=== PATIENT | female | born 1945 | race Caucasian/White ===

== ENCOUNTER 2017-11-29 07:00 | Day surgery (SDC) | payer MEDICARE ==
[~2017-11-29] VITALS: Ht 162.6 cm; Wt 115.2 kg
[~2017-11-29 07:00] MED LIST: ACTEMRA400 MG/20 IV; ASPIR-LOW81 MG PO; BENICAR40 MG PO; CLONIDINE HCL0.1 MG PO; HUMULIN R500 UNIT/2 SUB-Q; LANTUS100 UNITS/ SUB-Q; LEVOTHYROXINE175 MCG PO; LIPITOR20 MG PO; METFORMIN HCL500 MG PO; METOPROLOL SUCC50 MG PO; NASONEX17 GM NAS; OMEPRAZOLE20 MG PO; PRAMIPEXOLE DI1.5 MG PO; SULFASALAZINE500 MG PO; XANAX0.25 MG PO
--- NOTE | 2017-11-29 11:21 | NUR ---
11/29/17 1121 Genet Cohen 1111 PATIENT ARRIVES TO PACU UNRESPONSIVE TO PAIN OR VERBAL STIMULI. RESP EVEN AND UNLABORED, ORAL AIRWAY IN PLACE. MASK AT 6 LITERS. 1115 PATIENT OPENS EYES TO VERBAL STIMULI, OPENS MOUTH ON COMMAND, ORAL AIRWAY REMOVED. PATIENT OWN NASAL CPAP ON WITH OXYGEN AT 6 LITERS.
[2017-11-29] MEDS ORDERED: OXYCODON-ACETA1 EAC2 PO (11:34)
[2017-11-29] MEDS ORDERED: MAPAP325 MG PO (11:34)
--- NOTE | 2017-11-29 13:55 | NUR ---
LE 1150 PT RETURNED FROM PACU, PT DROWSY BUT RESPONDS TO VOICE. VITALS STABLE. PT CURRENTLY RESTING ON CPAP. WATER AT BEDSIDE. FAMILY AT BEDSIDE. NO FURTHER NEEDS AT THIS TIME.
--- NOTE | 2017-11-29 13:57 | NUR ---
LE 1200 PT CALLED STATING SHE IS HAVING INCREASED PAIN. PT RATES PAIN A 5/10. MORPHINE GIVEN FOR PAIN. PT ADVISED TO ADVISE RN IF PAIN DOES NOT IMPROVE. 1220 PT CALLED, IN TO SEE PT. PT STATES PAIN HAS NOT IMPROVED. MORPHINE 2 MG REPEATED. PT ASSISTED UP TO BSC WITH ASSIST OF 2 RN'S. PT TOLERATED WELL. DISCUSSED EATING SOME FOOD TO ADMINISTER ORAL PAIN MEDICATIONS FOR BETTER CONTROL. PT ASSISTED BACK TO BED, TOLERATED WELL. PRUDENCE GIRON WILL CONTINUE TO MONITOR PT, CPAP IN PLACE.
--- NOTE | 2017-11-29 14:09 | OR ---
[facility] [address] [place], [place] [address] Signed DATE OF OPERATION: 11/29/2017 SURGEON: Landon Dc MD PREOPERATIVE DIAGNOSES: 1. Left lateral periareolar dilated ductal system with small intraductal mass of uncertain behavior. 2. Hypertension (recently under control). POSTOPERATIVE DIAGNOSES: 1. Left lateral periareolar dilated ductal system with small intraductal mass of uncertain behavior. 2. Hypertension (recently under control). PROCEDURE: Left subareolar partial mastectomy. ANESTHESIA: General endotracheal; Camilla Hardy CRNA. INDICATION: This 72-year-old white woman is a patient of Dr. Carr and underwent a routine mammogram where she was noted to have some longstanding seepage from the left nipple. Clear fluid has been noted. This has been going on at least 3 years. She has never had bloody discharge. A mammogram and subsequent ultrasound of the breast was undertaken. 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 She has no family history of breast cancer that she is aware of. She does have significant rheumatoid disease, for which she has seen Dr. Cleary and more recently Dr. Hightower. She has rather extensive family history of systemic lupus, rheumatoid arthritis, Sjogren syndrome, and other issues. She was recently imaged for excision of the lesion with ultrasound guidance anticipating wide excision of the area in the subareolar area of the left breast, having had the area in question marked out by the radiologist with ultrasound, but upon presentation to the operating room had unacceptably high hypertension. At that time, her blood pressure was about 206/103 to 186/94. Additionally, she had premature ventricular beats, which were excessive, although they were unifocal. Rather than proceed with excision as planned, the operation was scheduled and an OpSite applied over that imaging site and she was seen once again promptly by Dr. Carr, who outlined an additional antihypertensive Electronically Signed By: LANDON DC MD 11/29/17 1409 PATIENT NAME: GAETANO SILVA OPERATIVE REPORT DATE OF : 49 REPORT #: [id number] PHYSICIAN: LANDON DC MD PCP: DE CARR DO REPORT IS CONFIDENTIAL AND NOT TO BE RELEASED WITHOUT AUTHORIZATION [facility] [address] [place], [place] [address] Signed regimen, which she has followed. She now has good hypertension control and no ectopy is noted. She is admitted now to undergo excision as planned of the area outlined in the left lateral aspect of the subareolar area. She understands as does her the risks of bleeding, infection, need for additional treatment, should malignancy be found, and other unforeseen complications. FINDINGS: The breast tissue excised was beneath the areola extending to the nipple itself and laterally beyond the margin of the areolar border. It was in concert with the previously marked area on the skin by the radiologist a few days ago. A ductal system with cystic fluid, which was mostly thick was noted. Deep excision was undertaken to approximately 4 cm and wide excision approximately 3 cm. Given the redundancy of her breast tissue, closure was undertaken in the oncoplastic way that showed no real defect at conclusion. DESCRIPTION OF PROCEDURE: The patient was brought to the operating room, given a general endotracheal anesthetic. Preoperative antibiotics were administered. The small OpSite that had covered the marking from a few days ago, was removed in the area re-additionally marked. The breast was prepared with a chlorhexidine solution and draped sterilely. A curvilinear incision was made along the areolar margin after marking it and after areolar stimulation. This was on the lateral aspect of the left areola obviously. Dissection was carried through the dermis with electrocautery. The flap was elevated with the nipple-areolar complex and just beneath the dermis was noted ectatic dilated ductal passages. An incision was taken to the midline beneath the areola itself and then excised laterally in concert with the previously marked area. Dissection was taken quite deep considering the numerous ductules with thickened fluid and so forth. Wide excision laterally was undertaken as well. This represented a rather sizable subareolar excision. The specimen was oriented. Photographs were taken throughout the procedure. Irrigation was undertaken and hemostasis assured with electrocautery. The breast parenchyma was reapproximated with interrupted 2-0 Vicryl. The deep dermal reapproximation was undertaken similarly and skin was closed with a running subcuticular 3-0 Vicryl. Steri-Strips were applied as was a Mepilex silver sponge dressing and an OpSite. Cosmesis was quite good. Blood loss was minimal. MD ZOIE Montalvo/KALENL Electronically Signed By: LANDON DC MD 11/29/17 1409 PATIENT NAME: GAETANO SILVA OPERATIVE REPORT DATE OF : 49 REPORT #: [id number] PHYSICIAN: LANDON DC MD PCP: ED CARR DO REPORT IS CONFIDENTIAL AND NOT TO BE RELEASED WITHOUT AUTHORIZATION [facility] [address] [place] [address] Signed /[id number] cc: MD De Gruber DO Copies: LIZA FIGUEROA MD, FRANK E DO ~ Electronically Signed By: LANDON DC MD 11/29/17 1409 PATIENT NAME: GAETANO SILVA OPERATIVE REPORT DATE OF : 49 REPORT #: [id number] PHYSICIAN: LANDON DC MD PCP: DE CARR DO REPORT IS CONFIDENTIAL AND NOT TO BE RELEASED WITHOUT AUTHORIZATION
--- NOTE | 2017-11-29 15:44 | NUR ---
LE 1315 IN TO CHECK ON PT, SHE STATES SHE IS DOING OKAY. PT IS STILL DROWSY. PAIN IS IMPROVING. PT ADVISED TO CONTINUE TO REST. NO FURTHER NEEDS AT THIS TIME. CALL LIGHT IN REACH, AT BEDSIDE. 1350 IN TO CHECK ON PT, PT SLEEPING. AWAKENS TO VOICE. BLANKET REQUESTED, GIVEN. NO FURTHER NEEDS AT THIS TIME. CALL LIGHT IN REACH, AT BEDSIDE. 1420 OUT TO RN STATION, STATES PT IS WAKING UP. IN TO SEE PT. PT STATES SHE IS READY TO GO HOME. ASSISTED UP TO BATHROOM, TOLERATED WELL. IV DC'D. PT DRESSING WITH HELP OF . 1450 DISCHARGE INSTRUCTIONS GIVEN TO . PT DRESSED AND SITTING IN CHAIR. ALL QUESTIONS ANSWERED. PT AMBULATED TO WHEELCHAIR, OUT OF UNIT. WAITING WITH CAR.
--- NOTE | 2017-11-30 05:41 | EKG ---
[facility] [address] [facility] [place], [place] [address] Signed Sinus bradycardia Otherwise normal ECG When compared with ECG of 26-NOV-2017 09:19, premature ventricular complexes are no longer present QT has shortened Confirmed by LIZA GUZMAN MD ([id number]) on 11/30/2017 5:41:47 AM Electronically Signed By: LIZA GUZMAN MD 11/30/17 0541 PATIENT NAME: GAETANO SILVA Electrocardiogram DATE OF : 49 PHYSICIAN: LIZA GUZMAN MD REPORT #: [id number] REPORT IS CONFIDENTIAL AND NOT TO BE RELEASED WITHOUT AUTHORIZATION
== END 2017-11-29 15:05 ==
LOC: DS 07:00
PROVIDERS: Surgery
PROC: 0HBU0ZZ Excision of Left Breast, Open Approach (ICD-10-PCS; principal; 2017-11-29 08:30)
DX: D24.2 Benign neoplasm of left breast (principal); N60.02 Solitary cyst of left breast; N60.32 Fibrosclerosis of left breast; I10 Essential (primary) hypertension; E03.9 Hypothyroidism, unspecified; G47.30 Sleep apnea, unspecified; E66.01 Morbid (severe) obesity due to excess calories; E11.9 Type 2 diabetes mellitus without complications; M06.9 Rheumatoid arthritis, unspecified; Z88.8 Allergy status to other drugs, medicaments and biological substances; Z90.710 Acquired absence of both cervix and uterus; Z90.89 Acquired absence of other organs; Z98.890 Other specified postprocedural states; Z98.51 Tubal ligation status; Z99.89 Dependence on other enabling machines and devices; Z68.41 Body mass index [BMI] 40.0-44.9, adult; Z79.4 Long term (current) use of insulin; Z79.82 Long term (current) use of aspirin; Z79.899 Other long term (current) drug therapy
CPT/HCPCS: 00404; 88305; 93005; 93010; J0690; J1644; J1885; J2270; J2405; J2704; J3010; J7120

== ENCOUNTER 2022-06-07 17:48 | Emergency (ER) | payer MEDICARE ==
[~2022-06-07] VITALS: Ht 162.6 cm; Wt 105.2 kg
[~2022-06-07 17:48] MED LIST changes: +MAPAP325 MG PO; +OXYCODON-ACETA1 EAC2 PO
--- OUTSIDE RECORDS SUMMARY | 2022-06-07 17:56 | XMS ---
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 Dot has no Care Guidelines for this patient. Connie VISIT COUNT (12 MO.) 1 [facility] T[facility] 2 NOTE: Visits indicate total known visits. ED/C VISIT TRACKING (12 MO.) 06/07/2022 17:49 [facility] [place] [facility] Emergency COMPLAINT: - MEDICATION REACTION [facility]16[facility]2022 09[facility] DIAGNOSES: - Shortness of breath - Atherosclerotic heart disease of [place] coronary artery without angina pectoris - SOB, irregular heart beat - Other chest pain - Shortness of Breath INPATIENT VISIT TRACKING (12 MO.) [facility] DIAGNOSES: - Other exterminator helper (current) drug therapy - Paroxysmal atrial fibrillation [email or web address]
[2022-06-07] MEDS ORDERED: SOTALOL80 MG PO (18:18)
[2022-06-07] MEDS ORDERED: CEPHALEXIN500 M1 PO (20:45)
--- NOTE | 2022-06-08 00:01 | EKG ---
[facility] [address] [place] [address] Signed Sinus bradycardia Otherwise normal ECG When compared with ECG of 10-NOV-2021 13:32, Sinus rhythm has replaced Atrial fibrillation Vent. rate has decreased BY 62 BPM Borderline criteria for Inferior infarct are no longer present Nonspecific T wave abnormality no longer evident in Lateral leads Confirmed by LIZA GUZMAN MD ([id number]) on 06/08/2022 12:01:07 AM Electronically Signed By: LIZA GUZMAN MD 06/08/22 0001 PATIENT NAME: GAETANO SILVA FEBRUARY Electrocardiogram DATE OF : 49 PHYSICIAN: LIZA GUZMAN MD REPORT #: [id number] REPORT IS CONFIDENTIAL AND NOT TO BE RELEASED WITHOUT AUTHORIZATION
== END 2022-06-07 21:13 | disposition home or self-care (01) ==
LOC: ED 17:48
DX: N39.0 Urinary tract infection, site not specified (principal); M06.9 Rheumatoid arthritis, unspecified; M19.90 Unspecified osteoarthritis, unspecified site; I10 Essential (primary) hypertension; E11.319 Type 2 diabetes mellitus with unspecified diabetic retinopathy without macular edema; Z88.8 Allergy status to other drugs, medicaments and biological substances; Z79.899 Other long term (current) drug therapy; Z79.4 Long term (current) use of insulin; Z79.84 Long term (current) use of oral hypoglycemic drugs
CPT/HCPCS: 36415; 70450; 71046; 80053; 81001; 83735; 83880; 85025; 87077; 87088; 87186; 93005; 93010; 99284-25; A9270

== ENCOUNTER 2024-06-17 05:00 | Emergency (ER) | payer MEDICARE ==
[~2024-06-17] VITALS: Ht 162.6 cm; Wt 80.0 kg
[~2024-06-17 05:00] MED LIST changes: +AMIODARONE HCL200 MG PO; +CEFPODOXIME PR100 MG PO; +CEPHALEXIN500 M1 PO; +DILTIAZEM ER180 MG PO; +ELIQUIS5 MG PO; +HYDROCHLOROTHIA25 MG PO; +HYDROXYCHLOROQ200 MG PO; +ISOSORBIDE MONO30 MG PO; +OZEMPIC1 MG/0.71 SQ; +SOTALOL80 MG PO; +VITAMIN D325 MCG PO
[2024-06-17] MEDS ORDERED: MORPHINE SULFATE 4 MG/ML VIAL IV ONE (05:30)
[2024-06-17] MEDS ORDERED: ASPIRIN 81 MG CHEW PO ONE (05:30)
[2024-06-17] MEDS ORDERED: hydrALAZINE HCL 20 MG/ML VIAL IV ONE (05:30)
[2024-06-17 05:32] LABS: BASOPHILS 0.9 % (0-2); EOSINOPHILS 0.5 % (0-6); HEMATOCRIT 32.7 % (35.0-50.0); LYMPHOCYTES 30.9 % (24-44); MCH 29.1 (27-36); MCHC 33.8 g/dl (30-36); MONOCYTES 6.7 % (0-12); PLATELET COUNT 174 K/uL (140-440); RDW 15.9 (10.5-15.0)
[2024-06-17 05:37] LABS: INR 0.96 (0.80-1.30); PROTIME 12.4 Sec (11.2-14.2)
[2024-06-17 05:45] LABS: ALBUMIN 3.4 g/dL (3.4-5.0); ALBUMIN/GLOBULIN RATIO 1.03 (1.1-2.4); ANION GAP 9.8 (7-21); BILIRUBIN, TOTAL 0.4 ng/dL (0.2-1.0); BUN/CREATININE RATIO 30.9 (6.0-28.6); CALCIUM 8.3 mg/dL (8.5-10.1); CREATININE, SERUM 1.1 mg/dL (0.55-1.02); MAGNESIUM 1.9 mg/dL (1.8-2.4); POTASSIUM 3.8 mmol/L (3.5-5.1); PROTEIN, TOTAL 6.7 g/dL (6.4-8.2)
[2024-06-17] MEDS ORDERED: ondansetron HCL 4 MG/2 ML VIAL IV ONE (05:45)
[2024-06-17] MEDS ORDERED: NITROGLYCERIN PACKET TOP ONE (05:45)
[2024-06-17] MEDS ORDERED: LIDOCAINE & ANTACID 35 ML BTL PO ONE (06:15)
[2024-06-17] MEDS ORDERED: droPERidol 5 MG/2 ML VIAL IV ONE (06:15)
[2024-06-17] MEDS ORDERED: HYDROmorphone HCL 1 MG/ML SYR IV ONE (06:15)
[2024-06-17] MEDS ORDERED: PANTOPRAZOLE SODIUM 40 MG/10 ML VIAL IV ONE (06:15)
[2024-06-17] MEDS ORDERED: SUCRALFATE 1 GM TAB PO ONE (07:00)
[2024-06-17] MEDS ORDERED: LEVODOPA/CARBIDOPA 10/100 1 EA TAB PO ONE (07:00)
[2024-06-17] MEDS ORDERED: PROTONIX40 MG PO (07:01)
[2024-06-17] MEDS ORDERED: CARAFATE1 GM PO (07:01)
[2024-06-17 07:21] VITALS: BP 189/76
--- NOTE | 2024-06-17 16:16 | EKG ---
[facility] [address] [facility] [place] [address] Signed Sinus bradycardia Low voltage QRS Incomplete right bundle branch block Borderline ECG When compared with ECG of 01-FEB-2023 08:39, Sinus rhythm has replaced Atrial fibrillation Incomplete right bundle branch block is now present Nonspecific T wave abnormality, improved in Inferior leads T wave inversion less evident in Anterolateral leads QT has lengthened Confirmed by Migdalia Guevara MD ([id number]) on 06/17/2024 4:16:23 PM Electronically Signed By: MIGDALIA GUEVARA MD 06/17/24 1616 PATIENT NAME: GAETANO SILVA FEBRUARY Electrocardiogram DATE OF : 49 PHYSICIAN: MIGDALIA GUEVARA MD REPORT #: [id number] REPORT IS CONFIDENTIAL AND NOT TO BE RELEASED WITHOUT AUTHORIZATION
== END 2024-06-17 07:22 | disposition home or self-care (01) ==
LOC: ED 05:00
PROVIDERS: Family Medicine
DX: R07.89 Other chest pain (principal); E11.319 Type 2 diabetes mellitus with unspecified diabetic retinopathy without macular edema; I10 Essential (primary) hypertension; I48.91 Unspecified atrial fibrillation; Z88.8 Allergy status to other drugs, medicaments and biological substances; Z79.01 Long term (current) use of anticoagulants; Z79.899 Other long term (current) drug therapy; Z79.890 Hormone replacement therapy
CPT/HCPCS: 36415; 71045; 80053; 83690; 83735; 83880; 84484; 85025; 85379; 85610; 93005; 93010; 96374; 96375; 99285-25; A9270; J0360; J1790; J2270; J2405; J2470

== ENCOUNTER 2024-06-22 09:24 | Inpatient (IN) | payer MEDICARE ==
[~2024-06-22] VITALS: Ht 162.6 cm; Wt 92.8 kg
[~2024-06-22 09:24] MED LIST changes: +CARAFATE1 GM PO; +PROTONIX40 MG PO
--- OUTSIDE RECORDS SUMMARY | 2024-06-22 09:31 | XMS ---
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 Dot has no Care Guidelines for this patient. Connie VIS[facility] COUNT (12 MO.) 3 [facility] TOTAL 3 NOTE: Visits indicate total known visits. 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 edema - Unspecified atrial fibrillation 12/20/2023 13:28 [facility] [place] TYPE: Emergency COMPLAINT: - R ABD/FLANK PAIN DIAGNOSES: - Allergy status to other drugs, medicaments and biological substances - Essential (primary) hypertension - Hormone replacement therapy - Other truck terminal manager (current) drug therapy - Right lower quadrant pain - Tubulo-interstitial nephritis, not specified as acute or chronic - Type 2 diabetes mellitus without complications INPATIENT VISIT TRACKING (12 MO.) No inpatient visits to display in this time frame [email or web address]
[2024-06-22] MEDS ORDERED: LIOTHYRONINE SO5 MCG PO (09:47)
[2024-06-22] MEDS ORDERED: PAXLOVID 300-11 EAC1 PO (09:47)
[2024-06-22] MEDS ORDERED: SYNTHROID100 MCG PO (09:47)
[2024-06-22] MEDS ORDERED: HYDROmorphone HCL 1 MG/ML SYR IV ONE (10:00)
[2024-06-22] MEDS ORDERED: ondansetron HCL 4 MG/2 ML VIAL IV ONE (10:00)
[2024-06-22 10:04] LABS: BASOPHILS 0.1 % (0-2); HEMOGLOBIN 10.6 g/dL (12.0-18.0); LYMPHOCYTES 6.3 % (24-44); MCH 28.4 (27-36); MCHC 33.2 g/dl (30-36); MCV 85.5 fl (81-99); MONOCYTES 5.3 % (0-12); NEUTROPHILS 88.3 % (39-80); PLATELET COUNT 240 K/uL (140-440); RBC 3.75 M/ul (4.3-5.7); RDW 15.2 (10.5-15.0)
[2024-06-22 10:14] LABS: ALBUMIN 2.6 g/dL (3.4-5.0); ALBUMIN/GLOBULIN RATIO 0.55 (1.1-2.4); BILIRUBIN, TOTAL 1.5 ng/dL (0.2-1.0); BUN/CREATININE RATIO 21.55 (6.0-28.6); CALCIUM 8.9 mg/dL (8.5-10.1); CREATININE, SERUM 1.16 mg/dL (0.55-1.02); PROTEIN, TOTAL 7.3 g/dL (6.4-8.2)
[2024-06-22] MEDS ORDERED: DEXTROSE 50% 50 ML SYR IV ONE ×2 (11:00→15:00)
[2024-06-22] MEDS ORDERED: DEXTROSE 5% IV SCH (11:15)
[2024-06-22] MEDS ORDERED: PIPERACILLIN/TAZOBACTAM 3.375 GM in DEXTROSE 5% 100 ML IV ONE (11:15)
[2024-06-22] MEDS ORDERED: POTASSIUM CHLORIDE IV SCH (11:15)
[2024-06-22] MEDS ORDERED: NACL 0.45% IV SCH (11:15)
[2024-06-22] MEDS ORDERED: D5W 1/2 NS + 20 KCL 1,000 ML IV SCH ×2 (11:45→23:30)
[2024-06-22] MEDS ORDERED: HYDROmorphone HCL 1 MG/ML SYR IV PRN ×2 (11:45→14:30)
[2024-06-22] MEDS ORDERED: ondansetron HCL 4 MG/2 ML VIAL IV PRN ×2 (11:45→14:45)
--- NOTE | 2024-06-22 12:17 | NUR ---
PT ARRIVES FROM ED VIA STRETCHER PUSHED BY KESHA CROSS. PTs ALSO PRESENT. REPORT RECEIVED. PT TRANSFERED TO HOSPITAL BED VIA DRAW SHEET. PT DROWSY, NO COMPLAINTS OF PAIN.
[2024-06-22 12:35] VITALS: BP 115/57
--- NOTE | 2024-06-22 14:02 | NUR ---
ASSISTED PT UP TO RESTROOM, UA SAMPLE SENT. IN ROOM. PT AMBULATED 1 P STANDBY.
[2024-06-22 14:04] LABS: BILIRUBIN, URINE NEGATIVE (negative); BLOOD/HGB, URINE NEGATIVE (Negative); KETONE, URINE NEGATIVE (Negative); LEUK ESTERASE, URINE NEGATIVE (negative); NITRITE, URINE POSITIVE (negative); PH, URINE 5.5 (5-7)
[2024-06-22 14:10] LABS: BACTERIA, URINE 2+ /hpf (negative); EPITHELIAL CELLS, URINE SQUAMOUS 2+ /lpf (0-1+)
[2024-06-22 14:11] LABS: CASTS, URINE NONE SEEN \\lpf; COLLECTION TYPE, URINE CLEAN CATCH; CRYSTALS, URINE NONE SEEN (0-1+); RED BLOOD CELLS, URINE 0-1 /hpf (0-5); REFLEX CULTURE, URINE No (No)
--- NOTE | 2024-06-22 14:21 | NUR ---
PT NOT AVAILABLE FOR VISIT. PROVIDED PRAYER.
[2024-06-22] MEDS ORDERED: ACETAMINOPHEN 325 MG TAB PO PRN (14:30)
[2024-06-22] MEDS ORDERED: PANTOPRAZOLE SODIUM 40 MG/10 ML VIAL IV SCH (14:31)
--- NOTE | 2024-06-22 14:58 | NUR ---
PT AGAIN HYPOGLYCEMIC. GIVEN JUICE AND RECHECKED BY RN. DR ORDERED AMP D50. ORDER PLACED AND CALLED PHARM TO VERIFY.
[2024-06-22 15:24] LABS: LACTIC ACID, BLOOD 1.7 mmol/L (0.4-2.0)
--- NOTE | 2024-06-22 15:25 | NUR ---
1310: ADMISSION ASSESSMENT COMPLETE. VSS. PT REPORTS FEELING COLD, WARM BLANKETS PROVIDED. PT ABDOMEN WITH ACTIVE BOWEL TONES, TENDER TO PALPATION IN RUQ, FIRM, MOVABLE MASS FELT. PT DX WITH "MILD COGNITIVE DEMENTIA" TWO YEARS AGO, PER , SO PROVIDES BULK OF HISTORY. PT DROWSY "FROM PAIN MEDICATION DOWN... THERE" BUT PLEASANT AND ANSWERS QUESTIONS WHEN DIRECTLY ADDRESSED. RECENTLY CLOSED SCAB TO R DE [place], NO OPEN AREA NOTED. PT WAS DIAGNOSED WITH COVID-19 FROM INCIDENTAL FINDING AT DOCTOR APPOINTMENT ON 06/19/24. AT THIS TIME, PT WITH NO COVID-19 SYMPTOMS. PT REPORTS TO THAT SHE IS SLIGHTLY APPREHENSIVE ABOUT SURGERY, THERAPEUTIC COMMUNICATION AND REASSURANCE PROVIDED. DR OROPEZA ARRIVES TO ASSESS PT, ANSWERS ALL QUESTIONS FROM PT AND PTs . DR OROPEZA REQUESTS PT TO HAVE LOW FAT DIET, DIET ORDER ENTERED. PT REQUESTING SPRITE, PUDDING, AND JELLO - SUPPLIED. PT LEAVES, STATES HE WILL RETURN WITH PTs CANE AND HOME CPAP MACHINE. 1430: BLOOD SUGAR OBTAINED TO FOLLOW UP HYPOGLYCEMIC INCIDENT IN ED, BLOOD SUGAR 59. DOCTOR NOTIFIED, DR OROPEZA ADVISED ORAL INTAKE OF ORANGE JUICE AND PUDDING, SUPPLIED TO PT. PT DRINKS 8OZ OF ORANGE JUICE AND EATS A CHOCOLATE PUDDING. 1445: BLOOD SUGAR RECHECKED PER PROTOCOL, BLOOD SUGAR NOW 48. PT REMAINS DROWSY BUT INCREASINGLY TALKATIVE WITH THIS RN. DR OROPEZA NOTIFIED OF UPDATED BLOOD SUGAR, DR OROPEZA ORDERS IV DEXTROSE. DR. OROPEZA REQUESTS BEAR ERNIE HCANELLE ORDERED AND ARRIVES. 1500: DEXTROSE ADMINISTERED IV, SEE MAR. 1525: PT BLOOD SUGAR NOW 187. PT MUCH MORE TALKATIVE AND REPORTS FEELING MUCH WARMER AT THIS TIME. CALL LIGHT IN REACH, BED ALARM IN PLACE.
[2024-06-22] MEDS ORDERED: IBLOOD GLUCOSE TEST STRIP 1 EA TEST VI PRN (15:30)
[2024-06-22] MEDS ORDERED: IBLOOD GLUCOSE TEST STRIP 1 EA TEST XX PRN ×2 (15:30→16:45)
[2024-06-22] MEDS ORDERED: DEXTROSE 50% 50 ML SYR IV PRN ×4 (15:30→16:45)
[2024-06-22] MEDS ORDERED: DEXTROSE 5% 1,000 ML IV PRN ×2 (15:30→16:45)
[2024-06-22] MEDS ORDERED: GLUCAGON,HUMAN RECOMBINANT 1 MG/ML VIAL SUB-Q PRN ×2 (15:30→16:45)
--- NOTE | 2024-06-22 16:07 | NUR ---
PT RESTING IN BED, SCDs IN PLACE, BED ALARM ON, BED IN LOWEST POSITION, BED RAILS UP. PT ENCOURAGED TO USE CALL LIGHT IF SHE NEEDS ANYTHING, EDUCATED NOT TO GET UP BY HERSELF. CALL LIGHT ACROSS LAP.
--- NOTE | 2024-06-22 16:15 | NUR ---
PT MOVED IN BED TO ROOM 111.
[2024-06-22] MEDS ORDERED: IBLOOD GLUCOSE TEST STRIP 1 EA TEST VI SCH ×2 (17:00)
[2024-06-22] MEDS ORDERED: INSULIN LISPRO 100 UNIT/ML ML SUB-Q SCH (17:00)
--- NOTE | 2024-06-22 17:04 | NUR ---
DISCUSSED PT BLOOD SUGAR AND UA RESULTS WITH DR RABAGO, ADDS LAB ORDERS, AWARE OF PT CONDITION.
[2024-06-22] MEDS ORDERED: AMIODARONE HCL 200 MG TAB PO SCH (17:05)
--- NOTE | 2024-06-22 17:30 | NUR ---
CALLED TO PT BEDSIDE TO SET UP HOME CPAP. CPAP FOUND TO BE IN POOR ORDER AND A MODEL BY [facility] THAT HAS BEEN RECALLED DUE TO SAFETY ISSUES. PT OFFERED [facility]. PT AGGREED TO USE [facility] WITH HER PERSONAL MASK. [facility] SET TO PATIENT STATED HOME PRESSURE OF 9CMH20, AND WILL BE READY FOR HS.
[2024-06-22 18:13] VITALS: BP 142/68
--- NOTE | 2024-06-22 19:40 | NUR ---
REPORT RECEIVED FROM DAY SHIFT RN. PT LYING IN BED ALERT. DENIES NEEDS. WHITE BOARD UPDATED. CALL LIGHT IN REACH. BED ALARM FOR SAFETY. AT BEDSIDE.
[2024-06-22 20:12] VITALS: BP 126/72
[2024-06-22 20:15] VITALS: BP 126/72
--- NOTE | 2024-06-22 20:15 | NUR ---
PATIENT GOT UP FROM BED TO USE THE BATHROOM. HELPED. PATIENT VOIDED UNMEASURED. PATIENT WANTING TO WALK OUTSIDE THE ROOM. STRUCTURAL TEST ENGINEER NOTIFIED. PATIENT WEAR MASK. THIS JAVA SECURITY ENGINEER OFFERED WALKER. PATIENT'S STATED "NO SHE DOES NOT NEED". PATIENT WALKED JUST SENIOR CARE TO THE HALLWAY AND BACK TO THE ROOM. PATIENT IS BACK IN BED NOW. V/S, I&O"S AND BLOOD SUGAR CHECK COMPLETED AND CHARTED. ICE PACK MADE FOR PATIENT'S RIGHT SIDE ABDOMEN. THIS JAVA SECURITY ENGINEER ASKED IF BED ALARM NEEDS TO BED ON, STATED "NO". BLOOD SUGAR WAS 96. PRIMARY RN NOTIFIED.
[2024-06-22] MEDS ORDERED: LIOTHYRONINE SODIUM 5 MCG TAB PO SCH (21:00)
[2024-06-22] MEDS ORDERED: ATORVASTATIN 20 MG TAB PO SCH (21:00)
[2024-06-22] MEDS ORDERED: PRAMIPEXOLE DIHYDROCHLORIDE 1 MG TAB PO SCH (21:00)
[2024-06-22] MEDS ORDERED: POTASSIUM CHLORIDE 20 MEQ in DEXTROSE 5% 250 ML IV ONE (21:15)
[2024-06-22] MEDS ORDERED: POTASSIUM CHLORIDE 20 MEQ/100 ML BAG IV ONE (21:30)
[2024-06-22] MEDS ORDERED: POTASSIUM CHLORIDE 10 MEQ/100 ML BAG IV SCH (22:00)
[2024-06-22] MEDS ORDERED: PIPERACILLIN/TAZOBACTAM 3.375 GM in DEXTROSE 5% 100 ML IV SCH (22:00)
--- NOTE | 2024-06-22 22:15 | NUR ---
EVENING ASSESSMENT COMPLETE. PT ALERT AND ORIENTED X 4. MEDS ADMIN PER EMAR. PT DENIES PAIN OR NAUSEA. IV ABX INFUSING PER ORDER. BOWEL TONES ACTIVE. ABD SOFT. SCD'S IN PLACE. BED ALARM FOR SAFETY. PT DENIES QUESTIONS OR CONCERNS. CALL LIGHT IN REACH.
[2024-06-23] VITALS (12 sets, daily range): BP systolic 104–148; BP diastolic 59–72
[2024-06-23] MEDS ORDERED: POTASSIUM CHLORIDE 10 MEQ/100 ML BAG IV SCH (01:15)
--- NOTE | 2024-06-23 02:02 | NUR ---
NEW IV STARTED IN LEFT AC BY FLOAT RN X 1 ATTEMPT. PT HAYDE WELL. UP TO BR WITH 1PA TO VOID. GAIT STEADY. BACK TO BED. VS AND I&O OBTAINED. POTASSIUM INFUSING PER ORDER. PT DENIES PAIN OR NAUSEA. CPAP IN PLACE. WARM BLANKETS PROVIDED. BED ALARM FOR SAFETY. CALL LIGHT IN REACH.
--- NOTE | 2024-06-23 03:20 | NUR ---
BAG 2 OF 2 POTASSIUM INFUSING WNL. PT UP TO BR WITH 1PA AND FWW TO VOID. BACK TO BED, HAYDE WELL. SCD'S IN PLACE. NO C/O PAIN OR NAUSEA. CPAP IN PLACE. NO FURTHER NEEDS. BED ALARM FOR SAFETY.
--- NOTE | 2024-06-23 03:28 | NUR ---
PUMP ASSEMBLER HELPED PT TO BATHROOM AND BACK TO BED.
--- NOTE | 2024-06-23 05:11 | NUR ---
IV PUMP ALARMING. ISSUE RESOLVED. VS AND I&O OBTAINED. TEMP ELEVATED. PRN TYLENOL ADMIN PER EMAR. IS UTILIZED. PT DEMONSTRATED PROPER USE WITH FREQUENT REMINDERS. CPAP BACK IN PLACE. NO FURTHER NEEDS. BED ALARM FOR SAFETY. CALL LIGHT IN REACH.
[2024-06-23 06:00] LABS: HEMATOCRIT 24.6 % (35.0-50.0); HEMOGLOBIN 8.4 g/dL (12.0-18.0); MCH 28.8 (27-36); MCV 84.7 fl (81-99); PLATELET COUNT 199 K/uL (140-440)
[2024-06-23 06:16] LABS: BANDS, MANUAL DIFF 4; LYMPHOCYTES, MANUAL DIFF 5; MONOCYTES, MANUAL DIFF 3; NEUTROPHILS, MANUAL DIFF 88
[2024-06-23 06:19] LABS: ALBUMIN 1.7 g/dL (3.4-5.0); ALBUMIN/GLOBULIN RATIO 0.46 (1.1-2.4); ANION GAP 11.8 (7-21); BUN/CREATININE RATIO 15.68 (6.0-28.6); CALCIUM 7.8 mg/dL (8.5-10.1); CREATININE, SERUM 1.02 mg/dL (0.55-1.02); MAGNESIUM 1.8 mg/dL (1.8-2.4); POTASSIUM 3.8 mmol/L (3.5-5.1); PROTEIN, TOTAL 5.4 g/dL (6.4-8.2)
[2024-06-23 06:25] LABS: LACTIC ACID, BLOOD 1.3 mmol/L (0.4-2.0)
[2024-06-23] MEDS ORDERED: LEVOTHYROXINE SODIUM 50 MCG TAB PO SCH (07:00)
--- NOTE | 2024-06-23 07:48 | NUR ---
UR CLINICAL REVIEW: 2 MN FOR VERSALUS-MEETS INPT CRITERIA MEDICARE INPT 06/22/24 @1158 ORDER MATCHES REG NO AUTH REQUIRED PER MEDICARE GUIDELINES DISCHARGE TO HOME WHEN STABLE
--- NOTE | 2024-06-23 07:51 | NUR ---
BOARD HAS BEEN UPDATED AND CALL LIGHT HAS BEEN PLACED WITHIN REACH
[2024-06-23] MEDS ORDERED: MAGNESIUM SULFATE 1 GM/2 ML VIAL IM ONE (08:30)
[2024-06-23] MEDS ORDERED: POTASSIUM CHLORIDE 10 MEQ TABCR PO ONE (08:30)
[2024-06-23] MEDS ORDERED: CALCIUM GLUCONATE 1,000 MG/10 ML VIAL IV ONE (08:30)
[2024-06-23] MEDS ORDERED: AMIODARONE HCL 200 MG TAB PO SCH (09:00)
[2024-06-23] MEDS ORDERED: MAGNESIUM SULFATE 2 GM/50 ML BAG IV ONE (09:30)
--- NOTE | 2024-06-23 10:38 | NUR ---
PATIENT ALERT IN BED. SPOUSE IN ROOM, BILL. BOTH ANSWER QUESTIONS. PATIENT LIVES IN HOUSE WITH , 1 STEP TO GET INSIDE, NO OTHER STAIRS. PATIENT STATES SPOUSE ASSISTS HER WITH STEP IF SHE IS HAVINGIN ISSUES. SHE USES A CANE, CPAP AND NEBULIZER, ALSO HAS A HUMIDIFIER. NO OTHER DME. BILL DRIVES PATIENT WHEN SHE NEEDS TRANSPORTATION. SPOUSE AND PATIENT BOTH DENY FINANCIAL HARDSHIP. NO KNOWN CASE MANAGEMENT NEEDS AT THIS TIME. PLAN FOR SURGERY TOMORROW. CURRENTLY PLANNING ON RETURNING HOME AT DISCHARGE FROM FACILITY, DEPENDING ON HOW PATIENT DOES POST OPERATIVELY.
[2024-06-23] MEDS ORDERED: PROTONIX40 MG PO (10:55)
[2024-06-23] MEDS ORDERED: CARAFATE1 GM PO (10:55)
[2024-06-23] MEDS ORDERED: IRON325 M1 PO (10:58)
[2024-06-23] MEDS ORDERED: MULTIVITAMIN1 EACH PO (10:58)
[2024-06-23] MEDS ORDERED: VITAMIN K100 MCG PO (10:58)
[2024-06-23] MEDS ORDERED: VALERIAN ROOT500 MG PO (10:59)
[2024-06-23] MEDS ORDERED: MAG GLYCINATE100 MG PO (10:59)
[2024-06-23] MEDS ORDERED: TURMERIC500 M2 PO (11:00)
[2024-06-23] MEDS ORDERED: UREA85 G1 TOP (11:01)
[2024-06-23] MEDS ORDERED: TRIAMCINOLONE A15 G1 TOP (11:01)
--- NOTE | 2024-06-23 11:12 | NUR ---
MED REC COMPLETE
--- NOTE | 2024-06-23 11:27 | NUR ---
PT NOT AVAILABLE FOR VISIT. PROVIDED PRAYER.
--- NOTE | 2024-06-23 12:51 | NUR ---
Patient sitting up eating lunch, alert to self, no distress. Patient's at bedside. Patient having loose stools, dark green in color. Patient reports intermittent nausea, declining medications at this time. IV patent, fluids infusing per order. Patient denies needs at this time. Personal supplies and call light within reach.
--- NOTE | 2024-06-23 13:15 | NUR ---
Patient has been getting out of bed and using the restroom, patient is back in bed. No request from patient at this time. Call light is in reach
--- NOTE | 2024-06-23 13:40 | NUR ---
PATIENT HAS A HIGH TEMP, NURSE HAS BEEN NOTIFIED
--- NOTE | 2024-06-23 14:05 | NUR ---
ADMIN TYLENOL 650MG PO AT THIS TIME FOR TEMP 99.3PO.
--- NOTE | 2024-06-23 14:29 | NUR ---
GREG FROM DR. OROPEZA TO CHANGE IV FLUIDS TO D5 NS WITH 20K @ 125ML/HR.
[2024-06-23] MEDS ORDERED: D5%-NACL 0.9% 20 KCL 1,000 ML IV SCH (14:30)
--- NOTE | 2024-06-23 19:37 | NUR ---
REPORT RECEIVED FROM DAY SHIFT RN. PT LYING IN BED ALERT TALKING TO FAMILY. DENIES NEEDS. WHITE BOARD UPDATED. CALL LIGHT IN REACH. BED ALARM FOR SAFETY.
--- NOTE | 2024-06-23 21:15 | NUR ---
EVENING ASSESSMENT COMPLETE. PT UP TO BR WITH FWW AND SBA TO VOID. PT INCONTINENT WELL. CLEAN BRIEF PROVIDED. BACK TO BED, HAYED WELL. VS AND I&O OBTAINED. PT DENIES PAIN OR NAUSEA. BOWEL TONES ACTIVE. ABD SOFT. SCD'S IN PLACE. MD IN ROOM. AT BEDSIDE. BED ALARM FOR SAFETY. CALL LIGHT IN REACH.
--- NOTE | 2024-06-23 22:35 | NUR ---
PT RESTING WITH EYES CLOSED WITH CPAP IN PLACE. AWAKENS EASILY. SCHEDULED MEDS ADMIN PER EMAR. BLOOD SUGAR 167. INSULIN HELD PER PT REQUEST "I DON'T WANT TO DROP TOO MUCH." VORB FROM MD TO MAKE PT NPO AT MIDNIGHT AND CHANGE ACCU CHECK TO Q6 HOURS WHILE NPO IN ANTICIPATION OF POSSIBLE SURGERY TOMORROW. PT REPORTS SHE IS COMFORTABLE AT THIS TIME. DENIES NEEDS. BED ALARM FOR SAFETY. CALL LIGHT IN REACH.
[2024-06-24] VITALS (8 sets, daily range): BP systolic 115–138; BP diastolic 58–77
--- NOTE | 2024-06-24 00:48 | NUR ---
IV PUMP ALARMING. ISSUE RESOLVED. UP TO BR WITH 1PA AND FWW TO VOID. GAIT WEAK BUT STEADY. BACK TO BED, HAYDE WELL. SCD'S AND CPAP IN PLACE. PT NPO AT THIS TIME, VERBALIZES UNDERSTANDING. IVF INFUSING PER ORDER. NO FURTHER NEEDS. BED ALARM FOR SAFETY. CALL LIGHT IN REACH.
--- NOTE | 2024-06-24 01:51 | NUR ---
IV PUMP ALARMING. ISSUE RESOLVED. ASSISTED PT TO REPOSITION TO RIGHT SIDE WITH PILLOWS. BLOOD SUGAR OBTAINED. PT DECLINED INSULIN AT THIS TIME DUE TO HX HYPOGLYCEMIA. NO FURTHER NEEDS. BED ALARM IN PLACE.
[2024-06-24] MEDS ORDERED: IBLOOD GLUCOSE TEST STRIP 1 EA TEST VI SCH ×2 (02:00→21:00)
[2024-06-24] MEDS ORDERED: INSULIN LISPRO 100 UNIT/ML ML SUB-Q SCH ×2 (02:00→21:00)
--- NOTE | 2024-06-24 03:30 | NUR ---
IV ABX COMPLETE. PT RESTING IN BED WITH EYES CLOSED. CPAP IN PLACE. RESPIRATIONS EVEN. CALL LIGHT IN REACH. BED ALARM FOR SAFETY.
--- NOTE | 2024-06-24 05:52 | NUR ---
LAB IN FOR MORNING DRAW. PT DOZING ON AND OFF. VS AND I&O OBTAINED. IV ABX INFUSING PER ORDER. PT REMAINS NPO. DENIES NEEDS. BED ALARM FOR SAFETY. CALL LIGHT IN REACH.
[2024-06-24 05:56] LABS: BASOPHILS 0.2 % (0-2); EOSINOPHILS 0.3 % (0-6); HEMATOCRIT 25.8 % (35.0-50.0); HEMOGLOBIN 8.6 g/dL (12.0-18.0); LYMPHOCYTES 7.2 % (24-44); MCH 28.7 (27-36); MCHC 33.2 g/dl (30-36); MCV 86.5 fl (81-99); MONOCYTES 5.2 % (0-12); NEUTROPHILS 87.1 % (39-80); PLATELET COUNT 238 K/uL (140-440); RBC 2.99 M/ul (4.3-5.7); RDW 15.1 (10.5-15.0)
[2024-06-24 06:05] LABS: ANION GAP 10.8 (7-21); BUN/CREATININE RATIO 9.47 (6.0-28.6); CALCIUM 7.8 mg/dL (8.5-10.1); CREATININE, SERUM 0.95 mg/dL (0.55-1.02); MAGNESIUM 2.1 mg/dL (1.8-2.4); POTASSIUM 3.8 mmol/L (3.5-5.1)
--- NOTE | 2024-06-24 07:12 | NUR ---
PT UP TO BR WITH FWW AND SBA TO VOID. BACK TO BED, HAYDE WELL. REPORTS RIGHT SIDE ABD PAIN 4/10. PRN FOR PAIN ADMIN PER EMAR. NO FURTHER NEEDS. AT BEDSIDE. BED ALARM FOR SAFETY.
--- NOTE | 2024-06-24 07:55 | NUR ---
PT RESTING IN BED THIS MORNING, IN ROOM VISITING WITH PATIENT/. CAME OUT OF ROOM REQUESTING REFRESH OF ICE WATER WHICH WAS PROVIDED. INFORMED PT/ I WOULD BE BACK SHORTLY, NO FURTHER NEEDS AT THIS TIME. CALL LIGHT WITHIN REACH. AIRBORNE PRECUATIONS IN PLACE FOR COVID+
[2024-06-24] MEDS ORDERED: PANTOPRAZOLE SODIUM 40 MG TABEC PO SCH (09:00)
--- NOTE | 2024-06-24 09:19 | NUR ---
CAME OUT TO NURSES STATION T0 ASK FOR ASSISTANTS GETTING PATIENT UP TO CHAIR. THIS DINING MANAGER IN TO ASSIST. 1PA FWW. LINENS CHANGED. IN ROOM. CALL LIGHT IN REACH. NO FURTHER NEEDS AT THIS TIME.
--- NOTE | 2024-06-24 09:39 | NUR ---
PT NOT AVAILABLE FOR VISIT. PROVIDED PRAYER.
--- NOTE | 2024-06-24 09:39 | NUR ---
PT RESTING, SITTING UP IN CHAIR. PRESENT AT CHAIRSIDE/MD JUST SAW THEM AND LEFT ROOM. THIS MORNING PT REQUESTED NO INSULIN FOR CBG OF 155. SHE HOLDING A MEDICATION THIS MORNING SHE FEELS IT IS NOT CORRECTLY DOSED AND WILL BRING IN HOME MEDS TO VERIFY. IV FLUIDS ADJUSTED TO 75ML/HR ORDERED - SEE NOV. PT VS STABLE, AFEBRILE THIS MORNING. ALL PT CARE NEEDS MET AT THIS TIME, PENDING SURGEON CONSULT. WILL CONTINUE TO MONITOR, CALL LIGHT WITHIN REACH.
--- NOTE | 2024-06-24 10:32 | NUR ---
DISCUSSED WITH HOSPITALIST, HOME MED FOR MIRAPEX IS ORDERED BID, FMAILY STATES SHE TAKES THIS EVERY EVENING ONCE DAILY. DISCUSSED WITH MD AND VERBAL ORDER TO CHANGE TO DAILY AT NIGHT. ORDERS UPDATED - SEE NOV.
--- NOTE | 2024-06-24 10:57 | NUR ---
CURRENTLY NO CM NEEDS, PENDING SURGICAL CONSULT WITH DR. SARMIENTO REGARDING CHOLECYSTECTOMY.
--- NOTE | 2024-06-24 11:23 | NUR ---
PT CALLED TO GET ASSISTANCE UP TO THE BATHROOM, AMBULATED WITH STEADY GAIT AND FWW TO BATHROOM. AT SIDE, REQUESTED TO SIT IN BATHROOM FOR SOMETIME, INSTRUCTED TO PULL CALL LIGHT WHEN READY TO GET OUT. ASSISTED HER OUT OF THE BATHROOM. WENT IN TO ROOM, TOOK SCD WRAPS OFF LOWER LEGS, IV FLUIDS INFUSING AND ANTIBIOTIC COMPLETE. PT PROVIDED GLYCERIN SWABS AND CHAPSTICK FOR DRY LIPS, INFORMED TO REMAIN NPO UNTIL SURGEON IS ABLE TO SEE HER. IS GOING TO RUN HOME FOR ALITTLE BIT, REALLY WANTS TO BE PRESENT WHEN SURGEON COMES. ALL PT CARE NEEDS MET, CALL LIGHT WTIHIN REACH, REMINDED PATIENT TO NOT GET UP ON OWN AND TO CALL FOR ASSISTANCE.
--- NOTE | 2024-06-24 12:50 | NUR ---
PT SITTING UP IN CHAIR WITH CPAP ON WHILE RESTING. MD IN ROOM CONSULTING. PT REMAINS NPO FOR CONSULT AT THIS TIME, PENDING ORDERS. DENIES ANY SIGNIFICANT PAIN AT THIS TIME. ALL CARE NEEDS MET, WILL MONITOR. CALL LIGHT WITHIN REACH.
--- NOTE | 2024-06-24 15:18 | NUR ---
Patient was resting in bed with visitors in the room. No cares were requested at the time.
[2024-06-24 15:48] LABS: CORTISOL,SERUM 20.8 ug/dL (())
[2024-06-24 15:48] LABS: CORTISOL,SERUM 20.8 ug/dL (())
--- NOTE | 2024-06-24 19:37 | NUR ---
REPORT RECIEVED FROM DAY SHIFT RN. PATIENT RESTING IN BED WITH EYES CLOSED. RESPIRATIONS EVEN AND UNLABORED. CALL LIGHT IN REACH.
--- NOTE | 2024-06-24 21:18 | NUR ---
PATIENT RESTING IN BED. VS AND I&Os OBTAINED AND RECORDED. IVs FLUSH WNL. PATIENT REPORTS 7/10 PAIN. PRN PAIN MEDICATION ADMINISTERED PER PATIENT REQUEST. SCHEDULED MEDICATION ADMINSITERED. BS OBTAINED AND RECORDED. ORANGE JUICE PROVIDED. PATIENT HAS NO FURTHER NEEDS AT THIS TIME. SCDs IN PLACE. WARM BLANKET PROVIDED. FRESH WATER PROVIDED. BED ALARM ON FOR SAFETY. PATIENT EDUCATED TO ROOM AND CALL LIGHT. NO FURTHER NEEDS. CALL LIGHT IN REACH.
--- NOTE | 2024-06-24 21:43 | NUR ---
IV ABX INFUSING PER ORDER. PATIENT HAS NO FURTHER NEEDS. CALL LIGHT IN REACH.
--- NOTE | 2024-06-24 22:23 | NUR ---
SCHEDULED IV ABX INFUSING PER ORDER. PATIENT HAS NO FURTHER NEEDS. CALL LIGHT IN REACH.
[2024-06-25] VITALS (8 sets, daily range): BP systolic 114–148; BP diastolic 59–72
--- NOTE | 2024-06-25 01:11 | NUR ---
PATIENT RESTING IN BED ON BACK WITH EYES CLOSED. RESPIRATIONS EVEN AND UNLABORED. CALL LIGHT IN REACH.
--- NOTE | 2024-06-25 02:59 | NUR ---
ROUNDING ON PATIENT. THIS RN ASKED PATIENT IF SHE NEEDED TO VOID. PATIENT UP TO BATHROOM TO VOID WITH FWW AND SBA. THIS RN NOTICED PATIENT INCONTINENT OF URINE IN BRIEF AND BOB. NEW BREIF AND BOB PLACED. PATIENT BACK TO BED. PUREWICK PLACED FOR INCONTINENCE AFTER LEODAN CARE PROVIDED. BED ALARM ON FOR SAFETY. JUICE DRANK PER PATIENT REQUEST. NO FURTHER NEEDS. CALL LIGHT IN REACH.
--- NOTE | 2024-06-25 05:15 | NUR ---
VS AND I&Os OBTAINED AND RECORDED. PRN PAIN/FEVER MEDICATION ADMINISTERED FOR FEVER. IV ABX INFUSING PER ORDER. PATIENT HAS NO FURTHER NEEDS. CALL LIGHT IN REACH. COLD WASH CLOTH APPLIED TO PATIENT FOREHEAD. 2 BLANKETS REMOVED OFF PATIENT. ROOM TEMP TURNED DOWN FROM 74 DEGREES TO 71 DEGREES.
[2024-06-25 05:56] LABS: BASOPHILS 0.2 % (0-2); EOSINOPHILS 0.1 % (0-6); HEMATOCRIT 24.8 % (35.0-50.0); HEMOGLOBIN 8.2 g/dL (12.0-18.0); LYMPHOCYTES 4.7 % (24-44); MCH 28.1 (27-36); MCHC 33.1 g/dl (30-36); PLATELET COUNT 263 K/uL (140-440); RBC 2.92 M/ul (4.3-5.7); RDW 14.8 (10.5-15.0)
--- NOTE | 2024-06-25 06:00 | NUR ---
IV ABX INFUSING PER ORDER. TEMP OBTAINED AND RECORDED. TEMP IS TRENDING IN THE RIGHT DIRECTION. NO FURTHER NEEDS. CALL LIGHT IN REACH.
--- NOTE | 2024-06-25 06:03 | NUR ---
MD SARMIENTO ON FLOOR. THIS RN UPDATED GUILLERMINA ON PATIENTS FEVER THIS AM. TO PLACE ORDERS.
[2024-06-25 06:14] LABS: ALBUMIN 1.6 g/dL (3.4-5.0); ALBUMIN/GLOBULIN RATIO 0.44 (1.1-2.4); ANION GAP 12.9 (7-21); BILIRUBIN, TOTAL 0.7 ng/dL (0.2-1.0); BUN/CREATININE RATIO 9.67 (6.0-28.6); CALCIUM 7.6 mg/dL (8.5-10.1); CREATININE, SERUM 0.93 mg/dL (0.55-1.02); MAGNESIUM 1.7 mg/dL (1.8-2.4); PHOSPHORUS, INORGANIC 2.6 mg/dL (2.5-4.9); POTASSIUM 3.9 mmol/L (3.5-5.1); PROTEIN, TOTAL 5.2 g/dL (6.4-8.2)
[2024-06-25] MEDS ORDERED: IBUPROFEN 600 MG TAB PO PRN (06:15)
[2024-06-25] MEDS ORDERED: MAGNESIUM SULFATE 2 GM/50 ML BAG IV ONE ×2 (06:30→08:15)
--- NOTE | 2024-06-25 06:52 | NUR ---
LEFT FOREARM IV LEAKING. IV DCd WNKL WITH TIP INTACT. PATIENT HAS NO FURTHER NEEDS. CALL LIGHT IN REACH.
--- NOTE | 2024-06-25 07:40 | NUR ---
RECEIVED REPORT FROM KESHA BROOKE. PT AWAKE IN BED, STATES NO NEEDS AT THIS TIME, CALL LIGHT WITHIN REACH.
[2024-06-25 07:43] LABS: ABO O; RH POSITIVE
[2024-06-25 07:57] LABS: ABO O; ANTIBODY SCREEN NEGATIVE; RH POSITIVE
[2024-06-25 07:59] LABS: IS CROSSMATCH COMPATIBLE
--- NOTE | 2024-06-25 08:05 | NUR ---
PT UP TO RESTROOM WITH FWW AND SBA. PT UP TO CHAIR AFTER RESTROOM, DENIES SOB. PT STATES NO NEEDS AT THIS TIME, AT THE BEDSIDE. CALL LIGHT WITHIN REACH.
--- NOTE | 2024-06-25 09:42 | NUR ---
PT SLEEPING IN BED, IV FLUIDS INFUSING ORDERED. MAGNESIUM INFUSING ORDERED FROM 0630, DUE LATE IV ANTIBIOTIC WAS INFUSING WELL. PT RESTING WITH CPAP MACHINE IN PLACE, PRESENT AT BEDSIDE. CALL LIGHT WITHIN REACH, ALL PT CARE NEEDS MET. PT DENIED ANY FURTHER NEEDS WHEN LEAVING THE ROOM. REMAINS IN [place] PRECAUTIONS FOR COVID+.
--- NOTE | 2024-06-25 10:03 | NUR ---
PATIENT IN BED AT THIS TIME. CIVIL PREPAREDNESS COORDINATOR ASSISTED PATIENT IN AMBULATING TO BATHROOM, PATIENT VOIDED URINE AND HAD BOWEL MOVEMENT. CIVIL PREPAREDNESS COORDINATOR CHARTED VOIDINGS IN COMPUTER. CALL LIGHT WITHIN REACH, NO FURTHER NEEDS AT THIS TIME.
--- NOTE | 2024-06-25 11:55 | NUR ---
PT AWAKE IN BED, AT THE BEDSIDE. PT STATES NO CURRENT NEEDS. CALL LIGHTS WITHIN REACH.
--- NOTE | 2024-06-25 11:57 | NUR ---
PATIENT IN BED AT THIS TIME. LOADER OPERATOR/GROUND LEADER CHARTED PATIENTS BLOOD SUGAR AND NOTIFIED RN. CALL LIGHT WITHIN REACH, NO FURTHER NEEDS AT THIS TIME.
--- NOTE | 2024-06-25 14:31 | NUR ---
PT NOT AVAILABLE FOR VISIT. PROVIDED PRAYER.
--- NOTE | 2024-06-25 18:24 | NUR ---
PT UP TO CHAIR, STATES SHE FEELS COLD, IS COVERED IN MULTIPLE BLANKETS. D/T FEVER, TYLENOL GIVEN AND ALL BUT ONE BLANKET REMOVED. PT STATES NO FURTHER NEEDS AT THIS TIME, CALL LIGHT WITHIN REACH, AT THE BEDSIDE.
--- NOTE | 2024-06-25 19:36 | NUR ---
REPORT RECIEVED FROM DAY SHIFT RN. PATIENT RESTING IN CHAIR WITH EYES CLOSED. RESPIRATIONS EVEN AND UNLABORED. CALL LIGHT IN REACH.
--- NOTE | 2024-06-25 20:06 | NUR ---
BUILDING CONSTRUCTION SUPERINTENDENT AND RN OBTAINED VITALS. NO NEW I&O AT THIS TIME. BUILDING CONSTRUCTION SUPERINTENDENT AND RN PLACED PT PUREWICK FOR NIGHT TIME INCONT. PT STATES NO FURTHER NEEDS AT THIS TIME. SCDS PLACED AND TURNED ON. CALL LIGHT WITHIN REACH AND IN ROOM.
--- NOTE | 2024-06-25 20:07 | NUR ---
PRN MEDICATION ADMINISTERED FOR FEVER. NO FURTHER NEEDS. CALL LIGHT IN REACH.
--- NOTE | 2024-06-25 20:44 | NUR ---
SCHEDULED MEDICATION ADMINISTERED. IV ABX INFUSING PER ORDER. IV FLUSHES WNL WITH BLOOD RETURN. BS OBTAINED AND RECORDED. COLD WASH CLOTH APPLIED TO PATIENT FOREHEAD FOR COMFORT. AT BEDSIDE. PATIENT AND DENY NEEDS. BED ALARM ON FOR SAFETY. CALL LIGHT IN REACH. SCDs IN PLACE.
[2024-06-25] MEDS ORDERED: PRAMIPEXOLE DIHYDROCHLORIDE 1 MG TAB PO SCH (21:00)
--- NOTE | 2024-06-25 21:30 | EKG ---
[facility] [address] [facility] [place] [address] Signed Sinus rhythm Cannot rule out Inferior infarct , age undetermined Abnormal ECG When compared with ECG of 17-JUN-2024 05:06, premature atrial complexes are now present Confirmed by nEzo Rabago MD ([id number]) on 06/25/2024 9:30:04 PM Electronically Signed By: ENZO RABAGO DO [id number] PATIENT NAME: GAETANO SILVA FEBRUARY Electrocardiogram DATE OF : 49 PHYSICIAN: ENZO RABAGO DO REPORT #: [id number] REPORT IS CONFIDENTIAL AND NOT TO BE RELEASED WITHOUT AUTHORIZATION
--- NOTE | 2024-06-25 21:59 | NUR ---
PATIENT SCHEDULED IV ABX INFUSING PER ORDER. PATIENT REPORTS 7/10 BLE PAIN FROM HER RESTLESS LEGS . PRN PAIN MEDICATION ADMINISTERED PER PATIENT REQUEST. PATIENT DENIES FURTHER NEEDS. PATIENTS HOME CPAP IN PLACE. CALL LIGHT IN REACH.
--- NOTE | 2024-06-25 22:42 | NUR ---
PATIENT RESTING IN BED ON BACK WITH EYES CLOSED. RESPIRATIONS EVEN AND UNLABORED. CALL LIGHT IN REACH.
[2024-06-26] VITALS (13 sets, daily range): BP systolic 119–173; BP diastolic 58–78
--- NOTE | 2024-06-26 00:44 | NUR ---
PATIENT RESTING IN BED ON BACK WITH EYES CLOSED. RESPIRATIONS EVEN AND UNLABORED. CALL LIGHT IN REACH.
--- NOTE | 2024-06-26 02:17 | NUR ---
PATIENT RESTING IN BED ON BACK WITH EYES CLOSED. RESPIRATIONS EVEN AND UNLABORED. CALL LIGHT IN REACH.
--- NOTE | 2024-06-26 03:28 | NUR ---
NEW BAG IV FLUID INFUSING PER ORDER. THIS RN CHECKED URINE CANESTER AND BREIF, NO URINE OUTPUT NOTED. BLADDER SCAN OBTAINED READING 299 mL. PATIENT UP TO BSC WITH SBA. PATIENT VOIDED 300 mL OF DARK URINE. PATIENT BACK TO BED. PATIENT TEMP OBTAINED AND RECORDED. PATIENT HAS NO FURTHER NEEDS. BED ALARM ON FOR SAFETY. CALL LIGHT IN REACH.
[2024-06-26 05:38] LABS: BASOPHILS 0.2 % (0-2); EOSINOPHILS 0.8 % (0-6); HEMATOCRIT 22.2 % (35.0-50.0); HEMOGLOBIN 7.6 g/dL (12.0-18.0); LYMPHOCYTES 7.1 % (24-44); MCH 29.2 (27-36); MCHC 34.4 g/dl (30-36); MONOCYTES 5.5 % (0-12); NEUTROPHILS 86.4 % (39-80); PLATELET COUNT 264 K/uL (140-440); RBC 2.62 M/ul (4.3-5.7)
--- NOTE | 2024-06-26 05:45 | NUR ---
HAND PATCHER AND RN COMPLETED SURGICAL [place]IPEDOWN AND CHANGED BED LINENS. PT BREIF CHANGED. HAND PATCHER AND RN OBTAINED AND DOCUMENTED VITALS AND OUTPUT. PT STATES NO FURTHER NEEDS AT THIS TIME. CALL LIGHT WITHIN REACH AND RN REMAINED IN ROOM.
--- NOTE | 2024-06-26 05:50 | NUR ---
PATIENT LEFT AC IV LEAKING. IV DCd WITHIN NORMAL LIMITS WITH TIP INTACT. MUNICIPAL ENGINEER BECKY IN ROOM TO PLACE NEW IV. LR WITH STRAIGHT TUBING AT BEDSIDE. SCDs IN PLACE.
[2024-06-26 06:00] LABS: ALBUMIN 1.4 g/dL (3.4-5.0); ALBUMIN/GLOBULIN RATIO 0.4 (1.1-2.4); ANION GAP 9.8 (7-21); BILIRUBIN, TOTAL 0.5 ng/dL (0.2-1.0); BUN/CREATININE RATIO 10.34 (6.0-28.6); CALCIUM 7.9 mg/dL (8.5-10.1); CREATININE, SERUM 0.87 mg/dL (0.55-1.02); MAGNESIUM 2.3 mg/dL (1.8-2.4); POTASSIUM 3.8 mmol/L (3.5-5.1); PROTEIN, TOTAL 4.9 g/dL (6.4-8.2)
--- NOTE | 2024-06-26 06:39 | NUR ---
PATIENTS IV ABX INFUSING PER ORDER. PATIENT REPORTS 4/10 BLE PAIN. PRN PAIN MEDICATION ADMINISTERED PER PATIENT REQUEST. PATIENT HAS NO FURTHER NEEDS. CALL LIGHT IN REACH. PATIENT DENIES ABD PAIN AT THIS TIME. BED ALARM ON FOR SAFETY CALL LIGHT IN REACH.
--- NOTE | 2024-06-26 06:46 | NUR ---
AT NURSES STATION SAID HE WANTS TO HAVE 2 UNITS TRANSFUSED WHEN AVAILABLE. THIS RN CALLED LAB AND QUYEN REPORTS THERE IS 2 UNITS AVAILABLE AT THIS TIME.
[2024-06-26] MEDS ORDERED: LIDOCAINE HCL 1% 30 ML SDV ONE (06:57)
[2024-06-26] MEDS ORDERED: iopamidoL 30 ML VIAL ONE (06:57)
[2024-06-26] MEDS ORDERED: SODIUM CHLORIDE 0.9% 40 ML IV ONE (06:57)
--- NOTE | 2024-06-26 07:20 | NUR ---
REPORT RECEIVED FROM STAMPER BLOCKER RN EDWARDO. PATIENT IS LYING IN BED WITH CPAP IN PLACE. PATIENT WITH HER HUSBNAD SITTING IN THE CHAIR AT BEDSIDE. PATIENT AND FAMILY STATED NO FURTHER NEEDS AT THIS TIME. CALL LIGHT AND PERSONAL BELONGINGS ARE WITHIN REACH.
[2024-06-26] MEDS ORDERED: fentaNYL citrate 100 MCG/2 ML VIAL ONE (08:05)
[2024-06-26] MEDS ORDERED: FAMOTIDINE 20 MG/ 2 ML VIAL ONE (08:05)
[2024-06-26] MEDS ORDERED: ondansetron HCL 4 MG/2 ML VIAL ONE (08:05)
[2024-06-26] MEDS ORDERED: LACTATED RINGER'S 1,000 ML IV ONE (08:05)
[2024-06-26] MEDS ORDERED: METOCLOPRAMIDE HCL 10 MG/2 ML SDV ONE (08:05)
[2024-06-26] MEDS ORDERED: MIDAZOLAM HCL 2 MG/2 ML VIAL ONE (08:05)
[2024-06-26] MEDS ORDERED: SUCCINYLCHOLINE IN 0.9% NACL 200 MG/10 ML SYRINGE ONE (08:05)
[2024-06-26] MEDS ORDERED: LIDOCAINE HCL 4% 5 ML AMP ONE (08:05)
[2024-06-26] MEDS ORDERED: ROCURONIUM BROMIDE 50 MG/5 ML SYR ONE ×2 (08:05→10:51)
[2024-06-26] MEDS ORDERED: SUGAMMADEX SODIUM 200 MG/2 ML ML ONE (08:05)
[2024-06-26] MEDS ORDERED: DEXAMETHASONE SOD PHOS 4 MG/ML VIAL ONE (08:05)
[2024-06-26] MEDS ORDERED: KETOROLAC TROMETHAMINE 30 MG/ML VIAL ONE (08:05)
[2024-06-26] MEDS ORDERED: propofoL 200 MG/20 ML VIAL ONE ×2 (08:05→10:07)
--- NOTE | 2024-06-26 08:15 | NUR ---
PATIENT IN BED AT THIS TIME. MINING CAPTAIN WENT TO ROUND ON PATIENT, MINING CAPTAIN ALSO CHARTED PATIENTS BLOOD SUGAR. RN IN ROOM AT THIS TIME. CALL LIGHT WITHIN REACH, NO FURTHER NEEDS AT THIS TIME.
[2024-06-26] MEDS ORDERED: fentaNYL citrate 50 MCG/ML SDV IV PRN (08:30)
[2024-06-26] MEDS ORDERED: IBLOOD GLUCOSE TEST STRIP 1 EA TEST VI PRN (08:30)
[2024-06-26] MEDS ORDERED: PROCHLORPERAZINE EDISYLATE 10 MG/2 ML VIAL IV PRN (08:30)
[2024-06-26] MEDS ORDERED: NALOXONE HCL 0.4 MG SYR IV PRN (08:30)
[2024-06-26] MEDS ORDERED: METOCLOPRAMIDE HCL 10 MG/2 ML SDV IV PRN (08:30)
[2024-06-26] MEDS ORDERED: droPERidol 5 MG/2 ML VIAL IV PRN (08:30)
[2024-06-26] MEDS ORDERED: ondansetron HCL 4 MG/2 ML VIAL IV PRN (08:30)
[2024-06-26] MEDS ORDERED: MORPHINE SULFATE 10 MG/ML VIAL IV PRN (08:30)
--- NOTE | 2024-06-26 08:30 | NUR ---
0900 MEDICATIONS ADMINISTERED PER THE EMAR. KESHA CANALES VERIFIED WITH DAY SURGERY MEDICATIONS WERE ABLE TO BE ADMINISTERED. POST 15 MINUTE BLOOD ADMINISTRATION VITAL SIGNS TAKEN AND DOCUMENTED IN THE CHART. BLOOD ADMINISTRATION RATE AT 200 ML/HR PER JONATHAN NAVARRETE. FULL ASSESSMENT COMPLETE. PATIENT IS ALERT AND ORIENTED TIMES 3. PATIENT IS NOT ORIENTED TO MONTH. PATIENT IS ON ROOM AIR WITH HOME CPAP AT THE BEDSIDE. LUNG SOUNDS ARE CLEAR IN THE UPPER LOBES BILATERALLY AND DIMINISHED IN THE BASES BILATERALLY. HEART TONES ARE IRREGULAR ON AUSCULTATION. STRONG PULSES ON PALPATION. SENSATION INTACT WITH NO COMPLAINTS OF NUMBNESS AND TINGLING. BOWEL TONES ARE ACTIVE IN ALL FOUR QUADRANTS WITH MILD ABDOMINAL DISTENTION. GENERALIZED WEAKNESS NOTED. LAST BM WAS 06/25/24. SCATTERED BRUISING NOTED. IV IN THE RIGHT FOREARM AND THE RIGHT AC BOTH FLUSHED WITH 10 ML NORMAL SALINE. ZOSYN IS INFUSING IN THE RIGHT FOREARM AT 25 ML/HR. IV DRESSING IS CLEAN, DRY, AND INTACT. JONATHAN NAVARRETE STATED TO STOP MAINTENANCE FLUIDS AT THIS TIME. FLUIDS PAUSED. IV DRESSING IN THE RAC IS CLEAN, DRY, AND INTACT. IV IN THE RAC STARTED BY KESHA HENDRICKS VIA ULTRASOUND GUIDED. PATIENT STATED NO FURTHER NEEDS AT THIS TIME. CALL LIGHT AND PERSONAL BELONGINGS ARE WITHIN REACH.
--- NOTE | 2024-06-26 08:35 | NUR ---
THIS RN TAKES CALL FROM JONATHAN NAVARRETE AND DR. SARMIENTO. STATES TO KEEP IV ANTIBIOTICS RUNNING, STOP IV FLUIDS, AND TO INCREASE THE RATE OF THE BLOOD TRANSFUSION BY DOUBLE THE CURRENT RATE. THIS RN NOTIFIES PRIMARY RN. NO NEW ORDERS AT THIS TIME. PRIMARY RN VERBALIZES UNDERSTANDING, REPEAT BACK PERFORMED.
--- NOTE | 2024-06-26 09:12 | NUR ---
PATIENT LEFT THE FLOOR AT THIS TIME WITH DAY-SURGERY RN. PATIENT FAMILY MEMBERS WENT WITH THE PATIENT.
[2024-06-26] MEDS ORDERED: ETOMIDATE 40 MG/20 ML VIAL ONE (09:18)
--- NOTE | 2024-06-26 10:03 | NUR ---
CURRENTLY IN DAY SURGERY
[2024-06-26] MEDS ORDERED: HYDROCORTISONE SOD SUCCINATE 100 MG/2 ML VIAL ONE (10:07)
[2024-06-26] MEDS ORDERED: DIGOXIN 500 MCG/2 ML AMP ONE (10:07)
--- NOTE | 2024-06-26 10:22 | NUR ---
PATIENT REMAINS OFF THE FLOOR AT THIS TIME.
--- NOTE | 2024-06-26 10:23 | NUR ---
PT NOT AVAILABLE FOR VISIT. PROVIDED PRAYER.
--- NOTE | 2024-06-26 11:07 | NUR ---
PATIENT REMAINS OFF THE FLOOR AT THIS TIME.
--- NOTE | 2024-06-26 12:15 | NUR ---
REPORT GIVEN TO KESHA HERNANDES IN CCU AT THIS TIME.
--- NOTE | 2024-06-26 12:57 | NUR ---
06/26/24 JOSE WHITT 1240 PT ARRIVED TO PACU IN CCU RM 128. PT HAS ORAL AIRWAY IN PLACE, AND 10 L OF OXYGEN VIA FACE MASK. PT BREATHING EQUAL AND UNLABORED. REPORT TAKEN FROM LANDON CASTILLO. ALL MONITORS ATTACHED. WYNNE IN PLACE AND DRAINING. PT HAS TWO DEREJE DRAINS ON RIGHT SIDE OF ABDOMEN. 1244 PT REDUCED TO 6L VIA FACE MASK, PT OXYGEN SAT STAYING ABOVE 96% ON RA. 1245 BLOOD GLUCOSE 139. 1257 PT NOT RESPONSIVE TO TACTILE OR VERBAL STIMULI. PT BREATHING EQUAL AND UNLABORED.
--- NOTE | 2024-06-26 13:50 | NUR ---
REPORT FROM GRETA REBOLLEDO, PT RESTING IN BED WITH SCD'S ON, FAMILY AT SIDE. JPX2 WNL, ABD DRSG CDI. VSS.
--- NOTE | 2024-06-26 14:08 | NUR ---
bs checked 132 prn, pt iv to pump site wnl. called ms for iv abx as it is not in pyxis.
[2024-06-26 15:24] LABS: BASOPHILS 0.1 % (0-2); HEMATOCRIT 36.2 % (35.0-50.0); HEMOGLOBIN 12.1 g/dL (12.0-18.0); LYMPHOCYTES 1.7 % (24-44); MCH 29.1 (27-36); MCHC 33.5 g/dl (30-36); MCV 86.8 fl (81-99); MONOCYTES 2.1 % (0-12); NEUTROPHILS 96.1 % (39-80); PLATELET COUNT 299 K/uL (140-440); RBC 4.18 M/ul (4.3-5.7); RDW 15.2 (10.5-15.0)
--- NOTE | 2024-06-26 16:26 | NUR ---
PT TALKATIVE, DRANK LOTS OF WATER AND TOLLERATED A PO MOTRIN. TOM AND SHERRELL DRAINED - PT VERY TALKATIVE ABOUT LOCAL RESTRAUNTS AND EATERY.
--- NOTE | 2024-06-26 17:15 | NUR ---
pt trsf to chair from bed with 2 person min assist. tollerated well. marco antonio x2 wnl pinned to gown, abd dressing is cdi. pt is alert and oriented and is in room. reports pain improving but sore 5/10 amb. call light in reach.
--- NOTE | 2024-06-26 18:28 | NUR ---
pt up in chair - po tylenol given ab throbing 7/10 pain. see bunny. kirstie pascual cl kamaljit lan. well.
--- NOTE | 2024-06-26 19:30 | NUR ---
REPORT RECEIVED FROM DAY SHIFT RN. PATIENT RESTING IN BED WITH AT BEDSIDE. IVF INFUSING WITH NO ISSUES OR CONCERNS, CATHERTER DRAINAING WITH NO ISSUES OR CONCERNS. DENIES ANY NEEDS, CALL LIGHT WITHIN REACH.
--- NOTE | 2024-06-26 20:35 | NUR ---
PATIENT ASSISTED FROM RECLINER TO BED. TOLLERATED 1 PA ASSIST TRANSFER WELL. REPORTED DIZZYNESS WHILE TRANSFERING. LUNGS CTA, BOWEL TONES HYPOACTIVE, DRESSINGS TO INCISION REMAINS CDI, DRESSING TO TOM DRAINS CDI. DRAINS EMPTIED. OUTPUT SEROSANG. REPORTS PAIN TO RIGHT ABDOMEN IS A 3/10 AT THIS TIME. DENIES ANY NAUSEA OR PASSING OF GAS. WYNNE CATHERTER CARE PROVIDED. WYNNE DRAINING DARK YELLOW URINE. PATIENT REQUESTING ENSURE CLEAR, ENSURE CLEAR GIVEN. BLOOD SUGAR TAKEN. VSS, AFEBRILE. PATIENT AND REQUESTING THAT HER HS DOSE OF PRAMIPEXOLE BE INCREASED TO 3MG THIS IS WHAT SHE TAKES AT HOME. PATIENT WITH NO FURTHER NEEDS AT THIS TIME. GOING HOME FOR THE NIGHT. CPAP PLACED ON PATIENT. CALL LIGHT WITHIN REACH. BED ALARM ON.
--- NOTE | 2024-06-26 21:20 | NUR ---
RN DISCUSSED PATIENT/ CONCERNS REGUARDING HS MIRAPEX AND CONCERNS OF HIGHER BLOOD SUAGR WITH MAINTANCE FLUIDS OF D5W1/2 NS. MD GAVE NEW VERBAL ORDERS VERIFIED VIA VERBAL READ BACK SEE MAR.
[2024-06-26] MEDS ORDERED: PRAMIPEXOLE DIHYDROCHLORIDE 1 MG TAB PO ONE (21:30)
--- NOTE | 2024-06-26 22:00 | NUR ---
IV ABX HUNG, MAINTANCE FLUIDS STOPPED PER MD ORDERS, ADITIONAL DOSE OF MIRAPEX GIVEN PER ORDERS. PATIENT REPORTS PAIN IS STILL A 3/10, DENIES NEED FOR PAIN MEDICATIONS AT THIS TIME. ICE PACK GIVEN. NO FURTHER NEEDS. CALL LIGHT WITHIN REACH, BED ALARM ON.
--- NOTE | 2024-06-26 23:20 | NUR ---
PATIENT RESTING IN BED WITH EYES CLOSED. RESPIRATIONS EVEN AND UNLABORED. IV ABX INFUSING WITH NO ISSUES OR CONCERNS. CPAP IN PLACE, SPO2 WNL. CALL LIGHT WITHIN REACH, BED ALARM ON.
[2024-06-27] VITALS (15 sets, daily range): BP systolic 125–166; BP diastolic 67–82
--- NOTE | 2024-06-27 00:49 | NUR ---
PATIENT AWAKE RESTING IN BED WITH EYES OPEN. C/O PAIN 12/17. PRN GIVEN SEE NOV. BOWEL TONES HYPOACTIVE. SURGICAL DRESSING REMAINS CDI WITH UNCHANGED SHADOWNING NOTED EARILER IN THE SHIFT. TOM DRAINS EPMTIED DRAINING SEROSANG FLUID. DENIES ANY NAUSEA OR PASSING OF GAS AT THIS TIME. AFEBRILE, VSS. NO FURTHER NEEDS. CALL LIGHT WITHIN REACH, BED ALARM ON.
--- NOTE | 2024-06-27 02:21 | NUR ---
PATIENT RESTING IN BED WITH EYES CLOSED. CPAP IN PLACE. RESPIRATIONS EVEN AND UNLABORED. CALL LIGHT WITHIN REACH. BED ALARM ON.
--- NOTE | 2024-06-27 02:43 | NUR ---
IV ALARMING. ABX INFUSSION COMPLETED. IV SITE REMAINS WNL. PATIETN REQUESTING A WARM BLANKET. WARM BLANKET GIVEN. DENIES FURTHER NEEDS. CALL LIGHT WITHIN REACH, BED ALARM ON.
--- NOTE | 2024-06-27 04:27 | NUR ---
PATIENT C/O PAIN PRN GIVEN SEE NOV. VSS, AFEBRILE. BOWEL TONES ACTIVE X 4 QUADRANTS. DENIES ANY NAUSEA OR PASSING OF GAS AT THIS TIME. DRESSING REMAINS CDI NO CHANGE IN SHADOWING FROM PREVIOUSLY IN SHIFT. TOM DRAINS EMPTIED. WYNNE CATHERTER EMPTIED. NO FURTHER NEEDS AT THIS TIME. CALL LIGHT WITHIN REACH.
[2024-06-27 05:37] LABS: HEMOGLOBIN 10.6 g/dL (12.0-18.0); MCH 29.1 (27-36); MCHC 34.3 g/dl (30-36); MCV 84.6 fl (81-99); PLATELET COUNT 323 K/uL (140-440); RBC 3.66 M/ul (4.3-5.7); RDW 15.1 (10.5-15.0)
[2024-06-27 05:49] LABS: ALBUMIN 1.5 g/dL (3.4-5.0); ALBUMIN/GLOBULIN RATIO 0.38 (1.1-2.4); ANION GAP 13.3 (7-21); BILIRUBIN, TOTAL 0.5 ng/dL (0.2-1.0); BUN/CREATININE RATIO 15.29 (6.0-28.6); CALCIUM 8.3 mg/dL (8.5-10.1); CREATININE, SERUM 0.85 mg/dL (0.55-1.02); MAGNESIUM 2.1 mg/dL (1.8-2.4); PHOSPHORUS, INORGANIC 4.3 mg/dL (2.5-4.9); POTASSIUM 4.3 mmol/L (3.5-5.1); PROTEIN, TOTAL 5.4 g/dL (6.4-8.2)
[2024-06-27 05:58] LABS: LYMPHOCYTES, MANUAL DIFF 5; MONOCYTES, MANUAL DIFF 3; NEUTROPHILS, MANUAL DIFF 92
--- NOTE | 2024-06-27 06:12 | NUR ---
PATIENT RESTING IN BED. DENIES ANY PAIN OR NAUSEA AT THIS TIME. IV ABX HUNG. IV SITE PATENT AND WNL. DENIES ANY NEEDS AT THIS TIME. CALL LIGHT WITHIN REACH, BED ALARM ON.
--- NOTE | 2024-06-27 07:30 | NUR ---
REPORT RECEIVED FROM MASOUD REBOLLEDO. PT AWAKE IN BED, IN ROOM WITH PT.
--- NOTE | 2024-06-27 08:00 | OR ---
[facility] [address], [place] [address] Signed DATE OF OPERATION: 06/26/2024 SURGEON: Hayder Sarmiento MD PREOPERATIVE DIAGNOSES: Severe rtsom-pa-zoxhrbl cholecystitis and cholelithiasis. POSTOPERATIVE DIAGNOSES: Severe rzkyc-gw-uyruoad cholecystitis and cholelithiasis. PROCEDURE: Laparoscopic converted to an open cholecystectomy without intraoperative cholangiogram (prolonged and difficult at two hours with two registered nurses). ESTIMATED BLOOD LOSS: 75 mL. FINDINGS: Necrotic gallbladder with multiple gallstones. INDICATIONS: Grecia is a 78-year-old obese diabetic female, who apparently has been having trouble with right upper quadrant abdominal pain for some time. Eventually she made it to our local emergency room for evaluation. Her liver function tests were fine, but she had a palpable mass on the lateral aspect of the right subcostal margin. A CT scan confirmed rather significant cholecystitis with cholelithiasis. The common bile duct was unremarkable. She was admitted to our locum surgeon, Dr. Chapin Cortez. Also, the Medical Service was consulted as well. She has been on Eliquis because she was in atrial fibrillation a couple of years ago. However, she has been in normal sinus rhythm here in the hospital with PACs. Therefore, she could not go directly to the OR plus she needed hydrated and her electrolytes needed to be corrected. I took over for the locum surgeon. I did contact one of our hepatobiliary colleagues in [place] with respect to the Eliquis. Three full days were recommended as minimum. We waited for full days off the Eliquis. I had met with Grecia each day. I had called her a couple of times and left messages. I finally was able to meet with him this morning. We had a long discussion regarding her current situation. She does have an advance directive for which she would accept treatment, but no heroic measures postoperatively. She would accept CPR as well. If she was unable to speak for herself, she told me that her Reed would be the one to consult. He and his had agreed in that regard. I had explained to Grecia Electronically Signed By: HAYDER SARMIENTO MD 06/27/24 0800 PATIENT NAME: GRECIA SILVA FEBRUARY OPERATIVE REPORT DATE OF : 49 REPORT #: [id number] PHYSICIAN: HAYDER SARMIENTO MD PCP: EVELYN CUNHA PA-C REPORT IS CONFIDENTIAL AND NOT TO BE RELEASED WITHOUT AUTHORIZATION [facility] [address], [place] [address] Signed her current situation. We discussed the location and function of the gallbladder. We discussed laparoscopic versus open cholecystectomy. They understand she has a real chance of undergoing an open cholecystectomy. There is risk including, but not limited to bleeding, infection, scarring, change in contour of the skin, damage to the intestines, damage to main bile duct, incisional hernias and other unforeseen comorbidities including given her advanced age and comorbidities. They had expressed understanding and wished to proceed. PROCEDURE IN DETAIL: I met with Grecia and her family once again in our preop area. After this, we took Grecia into the operating room and placed her in the supine position under general endotracheal tube anesthesia. She was already on her antibiotics along with her SCDs. We did not give her any Lovenox at this point because she has been on the Eliquis. We placed a Beck catheter, there was return of janene colored but clear urine. After this, she was prepped and draped in the usual sterile fashion. We placed our laparoscopic trocars a little lower than usual because we could palpate her gallbladder below the costal margin. We took a few minutes and we did slowly but surely the omentum from her gallbladder all the way to almost the cystic duct. Of course, that area was tremendously inflamed along with the triangle of Calot. This dependent area of her gallbladder was completely necrotic and with gentle manipulation, we could see the bile and her stones. We did not feel we could adequately remove the gallbladder laparoscopically at that point, so we decided to convert to open. We simply made a right subcostal incision to connect our trocar sites. Fortunately, we did not have to use her Bookwalter retractor. We did have a 2nd nurse scrub in to help. With some moist laps and we were able to access her gallbladder quite readily indirectly. We opened up the anterior portion of the gallbladder and had completely removed all the gallstones both inside and outside her gallbladder. The entire mucosa was completely necrotic. Thankfully, I can get behind the neck of the gallbladder and down near the cystic duct. However, we decided to leave the back wall of the gallbladder attached to the liver. We used a cautery then to divide the gallbladder anteriorly and posteriorly next to the liver and removed in pieces as we went down. We could see that the triangle of Calot was tremendously inflamed and there was no way we were going to get around or dissect that free for the cystic artery or the cystic duct. As we came across just distal to the lymph node of Calot of course, we came across the cystic artery and it was quite small but vigorous. We oversewed that with an 0 PDS suture. It took us a few minutes and we finally found our opening down to the cystic duct. We debrided out all the filmy necrotic tissue until we had healthy tissue. We oversewed the cystic duct with a [id number] 0 PDS suture. After this, the entire area was irrigated and suctioned out until clear. We brought in two #10 flat Joe drains laterally and in the most lateral drain lies posteriorly and just behind the cystic duct and then circles around medially. And then the more medial Electronically Signed By: HAYDER SARMIENTO MD 06/27/24 0800 PATIENT NAME: GRECIA SILVA FEBRUARY OPERATIVE REPORT DATE OF : 49 REPORT #: [id number] PHYSICIAN: HAYDER SARMIENTO MD PCP: EVELYN CUNHA PA-C REPORT IS CONFIDENTIAL AND NOT TO BE RELEASED WITHOUT AUTHORIZATION [facility] [address] [place] [id number] Signed drain came more anteriorly and on top of the area pass the gallbladder fossa in the posterior wall and then pass above the cystic duct and then curved around medially. The two drains were then held in place at the skin level with 2-0 nylon sutures. We had gently cauterized the posterior wall. We could not see any obvious ducts of Luschka and all the mucosa was completely necrotic and most of that was scraped away. After this, we then closed her abdominal wall in layers with running #1 PDS suture. We injected local anesthetic into the abdominal wall and subcutaneous tissues. The abdominal wall was irrigated and suctioned out until clear. We brought Arianna's fascia back together with interrupted 3-0 Monocryl sutures. We brought the dermis back together with interrupted 3-0 subcuticular Monocryl sutures. The skin was then reapproximated with kellen. After this, we approached the infraumbilical trocar site and we closed it with a [id number] in a simple #1 PDS suture. We injected local anesthetic into the abdominal wall and subcutaneous tissues. We brought the skin and dermis back together with interrupted 3-0 subcuticular Monocryl sutures. We irrigated the wound before closure. We then closed the skin edges with kellen. We then placed our bulb suction on each drain. Dry gauze and tape was then applied. We left Beck catheter in place. Grecia was weaned to extubation in the OR, taken into the ICU in stable but serious condition. Hayder Sarmiento MD ALB/MODL /[id number] cc: MD Evelyn Landry PA-C Copies: HAYDER SARMIENTO MD, CHLOE K PA-C ~ Electronically Signed By: HAYDER SARMIENTO MD 06/27/24 0800 PATIENT NAME: GRECIA SILVA FEBRUARY OPERATIVE REPORT DATE OF : 49 REPORT #: [id number] PHYSICIAN: HAYDER SARMIENTO MD PCP: EVELYN CUNHA PA-C REPORT IS CONFIDENTIAL AND NOT TO BE RELEASED WITHOUT AUTHORIZATION
--- NOTE | 2024-06-27 08:09 | NUR ---
DR SARMIENTO IN TO SEE PT
--- NOTE | 2024-06-27 08:10 | NUR ---
IN TO DO ASSESSMENT, PT IS ALERT AND AWAKE, STATES SHE IS COMFORTABLE. JPS IN PLACE DRAINING SEROSANG FLUID. WYNNE DRAINING CLEAR YELLOW URINE. IS AT BEDSIDE, QUESTIONS ANSERED. DRESSINGS RFMOVED BY DR SARMIENTO. NO DRAINAGE NOTED. PT REMAINS ON ROOM AIR. LUNGS CLEAR.
[2024-06-27] MEDS ORDERED: OXYCODONE HCL 5 MG TAB PO PRN (08:30)
[2024-06-27] MEDS ORDERED: PANTOPRAZOLE SODIUM 40 MG TABEC PO SCH (09:00)
[2024-06-27] MEDS ORDERED: PANTOPRAZOLE SODIUM 40 MG/10 ML VIAL IV SCH (09:00)
--- NOTE | 2024-06-27 09:30 | NUR ---
PT GIVEN CLEAR ENSURE PER REQUEST, REMAINS IN ROOM WITH PT, PT DENIES NEEDS.
--- NOTE | 2024-06-27 10:00 | NUR ---
PT GIVEN TYLENOL TO PREMEDICATE IN ANTICIPATION OF WORKING WITH PHYSICAL THERAPY.
--- NOTE | 2024-06-27 10:58 | NUR ---
PHYSICAL THERAPY IN TO SEE PT.
--- NOTE | 2024-06-27 11:30 | NUR ---
PT WAS ASSISTED TO CHAIR WITH PHYSICAL THERAPY, REMAINS UP IN CHAIR, DENIES NEED FOR PAIN MEDICAITON.
--- NOTE | 2024-06-27 12:52 | NUR ---
PT ASSISTED FROM CHAIR TO BED, DENIES NEEDS, ASSESSMENT DONE, UNCHANGED, IN ROOM.
--- NOTE | 2024-06-27 16:45 | NUR ---
REPORT GIVEN TO ALLY REBOLLEDO. PT THEN TRANSFERRED OVER TO MED SURG FLOOR.
--- NOTE | 2024-06-27 17:50 | NUR ---
PT STATES BRIEFS FEEL LIKE THEY ARE RUBBING ON SKIN ON BUTTOCKS, THIS RN VISUALIZES BLANCHABLE REDNESS ON GLUTEAL CLEFT AND COCCYX AREA. PILLOWS APPLIED TO CHAIR, BARRIER CREAM WIPES UTILIZED, SCANT AMOUNT OF STOOL REMOVED WITH WIPES. PT SITS UP TO CHAIR, STATES NO NEEDS AT THIS TIME, CALL LIGHT WITHIN REACH.
--- NOTE | 2024-06-27 18:30 | NUR ---
IN ROOM TO REASSESS PAIN. PATIENT RATES PAIN AT THE INCISION SITE 4/10 AND PAIN ON HER BUTTOCKS AT 6/10. PATIENT OFFERED PAIN MEDICATION. PATIENT ACCEPTS OFFER OF TYLENOL. PATIENT DENIES ADDITIONAL NEEDS AT THIS TIME. CALL LIGHT IN REACH.
--- NOTE | 2024-06-27 18:55 | NUR ---
THIS RN BLADDER SCANS PT, BLADDER SCANNER SHOWS 76ML. PO FLUID INTAKE ENCOURAGED. THIS RN CALLS DR. SARMIENTO TO UPDATE ON STATUS AND BLADDER SCAN RESULTS. MD STATES TO ORDER LR AT 100ML/HR. ORDER ENTERED, REPEAT BACK PERFORMED.
[2024-06-27] MEDS ORDERED: LACTATED RINGER'S 1,000 ML IV SCH (19:15)
--- NOTE | 2024-06-27 19:29 | NUR ---
RECEIVED REPORT FROM DAY SHIFT RN. PATIENT IS RESTING IN BED VISITING WITH . NO NEEDS NOTED. CALL LIGHT IN REACH.
--- NOTE | 2024-06-27 20:19 | NUR ---
PATIENTS VITALS TAKEN AND RECORDED. PATIENTS TOM DRAINS NOTED TO HAVE NO DRAINAGE IN THEM. PATIENTS INTAKE AND OUTPUT RECORDED. PATIENTS ASSEMENT COMPLETED. PATIENTS SURGICAL INCISION X2 HAS NOTED PARRISH. SURGICAL INCISIONS NOTED TO BE WELL APPROXIMATED. PATIENT RATES PAIN AT A 6/10, PRN PAIN MEDICATION GIVEN PER ORDER. PATIENTS PM MEDS GIVEN PER ORDER. PATIENTS IV INFUSING PER ORDER. PATIENT PLACED ON HOME CPAP. PATIENT PLACED ON CPOX PER RT. PATIENT DENIES ANY FURTHER NEEDS. CALL LIGHT IN REACH. BED ALARM ON FOR SAFETY. PATIENT REFUSED SCDS AND STATED "THEY MAKE MY LEG JUMPIN WORSE". PATIENT EDUCATED ON SCDS.
[2024-06-27] MEDS ORDERED: PRAMIPEXOLE DIHYDROCHLORIDE 1 MG TAB PO SCH (21:00)
--- NOTE | 2024-06-27 21:21 | NUR ---
PATIENTS VITALS TAKEN. PATIENTS PM MEDS GIVEN PER ORDER. PATIENTS PILLS GIVEN IN PUDDING. PATIENT REPOSITIONED IN BED. PATIENTS IV INFUSING PM ABX PER ORDER. PATIENT ASSESMENT COMPLETED. PATIENTS CAREGIVER AT BEDSIDE. NO FURTHER NEEDS NOTED. NAD NOTED. CALL LIGHT IN REACH. BED ALARM ON FOR SAFETY.
--- NOTE | 2024-06-27 22:16 | NUR ---
PATIENT IS RESTING IN BED WITH CPAP IN PLACE. IV ABX INFUSING PER ORDER. PATIENT REPORTS IMPROVEMENT IN PAIN. PATIENT DENIES ANY NEEDS. CALL LIGHT IN REACH. BED ALARM ON FOR SAFETY. CPOX IN USE.
[2024-06-28] VITALS (9 sets, daily range): BP systolic 135–173; BP diastolic 58–86
--- NOTE | 2024-06-28 00:14 | NUR ---
PATIENT IS RESTING IN BED WITH EYES CLOSED, CPOX READINGS ARE WNL. PATIENT CONTINUES TO WEAR CPAP. CALL LIGHT IN REACH. IV INFUSING PER ORDER.
--- NOTE | 2024-06-28 02:23 | NUR ---
PATIENT INCONT OF URINE. PATIENTS ATTEND CHANGED AND PUREWICK IN PLACE. PATIENT DENIES ANY PAIN. PATIENTS JPS EMPTIED. PATIENT REMAINS ON CPAP. PATIENT PROVIDED WARM BLANKET. PATIENT REPOSITIONED IN BED. PATIENT DENIES ANY FURTHER NEEDS. CALL LIGHT IN REACH. IV INFUSING PER ORDER. BED ALARM ON FOR SAFETY.
--- NOTE | 2024-06-28 04:07 | NUR ---
PATIENT IS RESTING IN BED WITH EYES CLOSED, CPOX READINGS ARE WNL. IV INFUSING PER ORDER. CALL LIGHT IN REACH. BED ALARM ON FOR SAFETY.
--- NOTE | 2024-06-28 05:46 | NUR ---
PATIENTS VITALS TAKEN AND RECORDED. INTAKE AND OUTPUT RECORDED. IV INFUSING PER ORDER. AM IV ABX INFUSING PER ORDER. PATIENT DENIES ANY PAIN. PATIENT REMAINS ON CPAP. FRESH ICE WATER PROVIDED. PATIENT DENIES ANY FURTHER NEEDS. CALL LIGHT IN REACH. BED ALARM ON FOR SAFETY.
--- NOTE | 2024-06-28 06:15 | NUR ---
PATIENT IS RESTING IN BED WITH EYES CLOSED, CPOX READINGS ARE WNL. CALL LIGHT IN REACH. IV INFUSING PER ORDER. PATIENT REMAINS ON CPAP. BED ALARM ON FOR PATIENT SAFETY.
--- NOTE | 2024-06-28 07:10 | NUR ---
RECIEVED REPORT FROM KESHA FISHER. PATIENT AWAKE IN BED. AT THE BEDSIDE. PATIENT DENIES NEEDS AT THIS TIME. CALL LIGHT IN REACH.
--- NOTE | 2024-06-28 07:20 | NUR ---
RECEIVED REPORT FROM KESHA FISHER. PT LYING IN BED AWAKE, AT THE BEDSIDE. CALL LIGHT WITHIN REACH.
[2024-06-28] MEDS ORDERED: INSULIN LISPRO 100 UNIT/ML ML SUB-Q SCH (08:00)
[2024-06-28] MEDS ORDERED: IBLOOD GLUCOSE TEST STRIP 1 EA TEST VI SCH (08:00)
--- NOTE | 2024-06-28 08:17 | NUR ---
patient up to chair with sba fww. patient tolerated well but stated that their "right side just hurts". patient also requested tylenol, nurse notified. in room and very helpful. no other requests were made at this time. call light within reach.
--- NOTE | 2024-06-28 08:20 | NUR ---
SHYANN REMOVED, NEW DEPENDS IN PLACE. PT UP TO CHAIR, STATES NO FURTHER NEEDS AT THIS TIME. CALL LIGHT WITHIN REACH.
--- NOTE | 2024-06-28 08:40 | NUR ---
PATIENT STATED, "FOOD JUST DOES NOT SOUND GOOD". PT REFUSED BREAKFAST TRAY. CALL LIGHT WITHIN REACH.
[2024-06-28] MEDS ORDERED: LIOTHYRONINE SODIUM 5 MCG TAB PO SCH (09:00)
--- NOTE | 2024-06-28 09:05 | NUR ---
IV PUMP ALARMING, THIS RN TO BEDSIDE, ZOSYN INFUSION COMPLETE. SECOND BAG OF FLAGYL HUNG AND INFUSION STARTED. PT STATES NO NEEDS AT THIS TIME. DR. MOTA AT BEDSIDE. CALL LIGHT WITHIN REACH.
--- NOTE | 2024-06-28 12:15 | NUR ---
PT EATING SOUP FAMILY BROUGHT IN FOR HER. PT STATES NO NEEDS AT THIS TIME. CALL LIGHT WITHIN REACH.
--- NOTE | 2024-06-28 14:35 | NUR ---
PT STATES PAIN IS FEELING "A LITTLE BETTER" AND THAT SHE WOULD LIKE TO WALK OR SHOWER SOON. PT STATES NO FURTHER NEEDS AT THIS TIME, CALL LIGHT WITHIN REACH.
--- NOTE | 2024-06-28 17:15 | NUR ---
PT AWAKE IN BED, REQUESTS BARRIER CREAM THE PREVIOUSLY APPLIED CREAM WASHED OFF IN SHOWER THIS EVENING. BARRIER CREAM APPLIED. PT TURNED TO RIGHT SIDE USING PILLOWS TO RELEIVE PRESSURE FROM COCCYX AND BACK. PT STATES SHE FEELS "VERY COMFORTABLE". PT STATES NO FURTHER NEEDS AT THIS TIME, CALL LIGHT WITHIN REACH.
--- NOTE | 2024-06-28 21:30 | NUR ---
PT ASSESSMENT COMPLETE. PT RESTING IN BED WITH EYES CLOSED, WAKES EASILY. DOT NET DEVELOPER ASSISTS PT TO TAKE CPAP MASK OFF. PT REPORTS PAIN, 8/10 TO R SIDE OF ABD WITH MOVEMENT. PRN ADMINISTERED, SEE EMAR. PT DENIES SOB OR NAUSEA. EDEMA PRESENT TO BUE AND BLE, GENERALIZED. PT A&O, HOWEVER REPEATS THE SAME QUESTION TO DOT NET DEVELOPER ABOUT HER GRANDCHILDREN MULTIPLE TIME DURING ASSESSMENT. BT'S HYPOACTIVE. ABD TENDER TO PALPATION. SURGICAL SITE WITH PARRISH, CULTURE MANAGER. NO DRAINAGE NOTED. EDGES WELL APPROXIMATED, AND NO REDNESS NOTED. TOM X2 PRESENT TO RUQ, DARK BROWN FLUID PRESENT IN BOTH JPS. IV X 2 FLUSHED WITH 5 ML NS. WNL, PATENT. BEDDING, ATTENDS, AND GOWN CHANGED DUE TO INCONTINENCE. PURE WICK PLACED. PT DENIES FURTHER NEEDS. DOT NET DEVELOPER ASSISTS PT TO REPLACE CPAP. CALL LIGHT IN REACH.
--- NOTE | 2024-06-28 22:45 | NUR ---
CAVALRY SCOUT TO ROOM FOR SCHEDULED MED ADMINISTRATION. PT WAKES EASILY. DENIES NEEDS AT THIS TIME. CALL LIGHT IN REACH.
[2024-06-29] VITALS (8 sets, daily range): BP systolic 138–165; BP diastolic 61–69
--- NOTE | 2024-06-29 00:45 | NUR ---
PT ROUNDING. PT RESTING IN BED WITH EYES CLOSED. RESPIRATIONS EVEN AND UNLABORED. CPAP IN PLACE APPROPRIATELY. PT APPEARS TO BE SLEEPING. DOES NOT WAKE WHILE NIPPLE MAKER IN ROOM. CALL LIGHT IN REACH.
--- NOTE | 2024-06-29 02:31 | NUR ---
PT ASSESSMENT COMPLETE. PT LYING IN BED AWAKE, STATES THAT SHE IS HAVING 8/10 PAIN TO R SIDE. PRN ADMINISTERED, ICE PACK PLACED TO SURGICAL SITE. PT DENIES SOB OR NAUSEA. PT DECLINES TO WEAR CPAP AT THIS TIME. BT'S REMAIN HYPOACTIVE. SURGICAL SITES UNCHANGED FROM PREVIOUS ASSESSMENT. TOM X 2 CONTINUE TO DRAIN BROWN LIQUID. IV SITES X 2, AC SITE SL, FOREARM SITE WITH IVF. PT DENIES FURTHER NEEDS AT THIS TIME. CALL LIGHT IN REACH.
--- NOTE | 2024-06-29 03:12 | NUR ---
PT ROUNDING. PT RESTING IN BED WITH EYES CLOSED. RESPIRATIONS EVEN AND UNLABORED. PT APPEARS TO BE SLEEPING. DOES NOT WAKE WHILE CANVAS GOODS SUPERVISOR AT DOORWAY. CALL LIGHT IN REACH.
[2024-06-29 05:32] LABS: BASOPHILS 0.2 % (0-2); EOSINOPHILS 0.4 % (0-6); HEMATOCRIT 26.4 % (35.0-50.0); MCH 29.2 (27-36); MONOCYTES 5.6 % (0-12); NEUTROPHILS 78.8 % (39-80); PLATELET COUNT 367 K/uL (140-440); RBC 3.07 M/ul (4.3-5.7); RDW 14.7 (10.5-15.0)
[2024-06-29 05:46] LABS: ALBUMIN 1.5 g/dL (3.4-5.0); ALBUMIN/GLOBULIN RATIO 0.45 (1.1-2.4); ANION GAP 10.9 (7-21); BILIRUBIN, TOTAL 0.4 ng/dL (0.2-1.0); BUN/CREATININE RATIO 17.94 (6.0-28.6); CALCIUM 7.8 mg/dL (8.5-10.1); CREATININE, SERUM 0.78 mg/dL (0.55-1.02); MAGNESIUM 1.8 mg/dL (1.8-2.4); PHOSPHORUS, INORGANIC 3.7 mg/dL (2.5-4.9); POTASSIUM 3.9 mmol/L (3.5-5.1); PROTEIN, TOTAL 4.8 g/dL (6.4-8.2)
--- NOTE | 2024-06-29 05:55 | NUR ---
SYSTEMS SECURITY CONSULTANT TO ROOM FOR SCHEDULED MEDICATION ADMINISTRATION. PT AWAKE IN BED, COVERING MACHINE TENDER PRESENT IN ROOM. VS OBTAINED. WNL. PT REPORTS PAIN 5/10. PRN ADMINISTERED, SEE EMARIvelisse PAK AND ATTENDS CHANGED. PT REPOSITIONED IN BED. PT DENIES FURTHER NEEDS AT THIS TIME. CALL LIGHT IN REACH.
--- NOTE | 2024-06-29 07:37 | NUR ---
PT AWAKE AND INTERACTIVE AT TIME OF SHIFT REPORT. DR SARMIENTO AND PT ARE PRESENT ALL QUESTIONS ANSWERED. PLAN GOING FORWARD DISCUSSED. PT VERBALIZES UNDERSTANDING SHE WILL BE UP IN THE CHAIR AND AMBULATING THIS SHIFT. FRESH H20 TO BEDSIDE. AGREES IBUPROPHEN WITH MORNING MEAL THEN ACTIVITIES
--- NOTE | 2024-06-29 07:59 | NUR ---
RIGHT ARM IS EDEMATOUS, IVX2 INFUSING. FLUIDS STOPPED. TESTED SL FOR PATENCY, UNABLE TO PULL BACK BLOOD ON EITHER FOR CONFIRMATION. MARKET CONSULTANT NOTIFIED NEW SITE TO BE ESTABLISHED
--- NOTE | 2024-06-29 08:27 | NUR ---
PT C/O SOME NAUSEA SOON AFTER MORNING MEAL ARRIVES. ZOFRAN ADMINISTERED. PT TAKING BITES SLOWLY, ENCOURAGED NOT TO TAKE MORNING MEDS UNTIL STOMACHE SETTLES A BIT AND SHE HAS FOOD IN HER.
--- NOTE | 2024-06-29 08:55 | NUR ---
PT EATS A SMALL AMOUNT OF MORNING MEAL CONTINUES SIPPING ON ENSURE. DENIES WANT OF ANY OTHER FOOD OPTIONS. NAUSEA IS STARTING TO LUIZA, NO EMESIS. PT REQUESTS TO REMAIN IN BED FOR NOW STATES "I'M JUST STARTING TO WARM UP"
[2024-06-29] MEDS ORDERED: MAGNESIUM OXIDE 400 MG TABLET PO SCH (09:00)
--- NOTE | 2024-06-29 10:01 | NUR ---
PT UP AMBULATING THE ALDANA WITH STAFF AND
--- NOTE | 2024-06-29 10:18 | NUR ---
PT IS BACK TO THE ROOM P/T IS PRESENT TO WORK WITH HER. IS ENCOURAGING AND PT IS COOPERATIVE.
--- NOTE | 2024-06-29 10:25 | NUR ---
In the morning safety meeting, clarification was sought r/t this pt's covid status. fiber optics supervisor, Oz Vail contacted infection control who stated this pt does still need to be on precautions. Primary RN notified.
--- NOTE | 2024-06-29 10:47 | NUR ---
PT CAME OUT OF THE ROOM AND SAID THAT PT WANTED TO GO ON A WALK. WE DID ONE ROUND AROUND THE NURSING STATION. GOT BACK TO HER ROOM AND PT SAT IN THE CHAIR. PHYSICAL THERAPY CAME IN AND SAID SHE IS GOING TO BE WORKING WITH THE PT.
--- NOTE | 2024-06-29 10:53 | NUR ---
ACTIVITY WELL TOLERATED PT RESTING IN THE CHAIR NOW DENIES NEEDS OF
--- NOTE | 2024-06-29 12:54 | NUR ---
PT MOVED BACK TO THE BED ABOUT 20 MINUTES BEFORE NOON MEAL STATING HER BOTTOM WAS GETTING SORE. REMAINS IN BED VISITING WITH DRINKING ENSURE
--- NOTE | 2024-06-29 13:50 | NUR ---
PT NOT AVAILABLE FOR VISIT. PROVIDED PRAYER.
--- NOTE | 2024-06-29 13:55 | NUR ---
PT UP TO AMBULATE THE ALDANA IS ABLE TO MAKE ONE LAP THEN RETURNS TO REST IN BED. REMAINS PRESENT.
--- NOTE | 2024-06-29 14:44 | NUR ---
Patient has been here x8 days. She had an open cholecystectomy on Saturday, 06/26. She is on a soft diet with a 60 gm consistent carb restriction. Reports nausea today, didn't eat much but did drink an Ensure. If appetite doesn't improve, will encourage patient to drink 2-3 [address] RD will follow up in 5 days if patient still here.
--- NOTE | 2024-06-29 15:46 | NUR ---
MOTRIN ADMINISTERED PT. PT RESTING IN BED AT BEDSIDE
--- NOTE | 2024-06-29 17:15 | NUR ---
TOOK PT BLOOD SUGAR. CHARTED IT. THEN PT AKSED TO GO ON A WALK WE DID ONE ROUND AROUND THE NURSING STATION. WENT BACK TO HER ROOM AND DID LEODAN CARE ON PT AND CHANGED HER PUREWICK @1640 PT DIDNT NEED ANYTHING ELSE AND CALL LIGHT IS WITHIN REACH.
--- NOTE | 2024-06-29 19:05 | NUR ---
REPORT RECEIVED FROM LINDSEY REBOLLEDO. pt RESTING IN THE BED. IV ASSESSED, WNL. pt DENIES ANY NEEDS AT THIS TIME. BOARD UPDATED. CALL LIGHT WITHIN REACH.
--- NOTE | 2024-06-29 20:50 | NUR ---
ASSESSMENT AND VITAL SIGNS DONE. BG CHECKED WITH A RESULTS OF 121. NO SS INSULIN NEEDED. IV ASSESSED, WNL. MIDLINE INCISION CDI, RUQ INCISION CDI. BOWEL TONES ACTIVE. MINIMAL DRAINAGE IN TOM DRAIN X2. SCHEDULED MEDICATION ADMINISTERED. pt DENIES ANY NEEDS AT THIS TIME. CALL LIGHT WITHIN REACH.
--- NOTE | 2024-06-29 22:19 | NUR ---
scheduled med provided. pt reports 04/18 r abd pain, pressure, "warm". prn pain med provided. iv wnl. pt states no other needs. family at bedside. call light in reach.
--- NOTE | 2024-06-29 23:36 | NUR ---
PT UTILIZES CALL LIGHT, REPORTS INCREASED PAIN TO R SIDE, RATES 6-8/10. PRN ADMINISTERED AND ROLL HAND PROVIDED PT WITH ICE PACK. PT DENIES FURTHER NEEDS AT THIS TIME. CALL LIGHT IN REACH.
--- NOTE | 2024-06-29 23:43 | NUR ---
PSYCHODRAMATIST GAVE PT ICE PACK FOR HER RIGHT THIGH.
[2024-06-30] VITALS (9 sets, daily range): BP systolic 148–174; BP diastolic 62–80
--- NOTE | 2024-06-30 02:00 | NUR ---
pt RESTING IN THE BED. pt TOM DRAIN CHECKED WITH MINIMAL BROWN FLUID DRAINING. pt DENIES ANY OTHER NEEDS AT THIS TIME. CALL LIGHT WITHIN REACH.
--- NOTE | 2024-06-30 04:30 | NUR ---
pt CALLED FOR PRN PAIN MEDICATION. pt C/O 03/18 PAIN. PRN PAIN MEDS ADMINISTERED. pt C/O NAUSEA. ANTINAUSEA MEDS AMINISTERED. pt DENIES ANY OTHER NEEDS AT THIS TIME. CALL LIGHT WITHIN REACH.
--- NOTE | 2024-06-30 06:44 | NUR ---
pt RESTED THROUGH OUT THE NIGHT. pt INCISIONS CHI, PARRISH INTACT, EDGES WELL APROXAMATED. PRN PAIN MEDICATION ADMINISTERED IN THE NIGHT. NO OTHER CONCERNS AT THIS TIME.
[2024-06-30] MEDS ORDERED: LEVOTHYROXINE SODIUM 100 MCG TAB PO SCH (07:00)
--- NOTE | 2024-06-30 07:17 | NUR ---
REPORT FROM MARIIA DAVIS RN.
--- NOTE | 2024-06-30 07:46 | NUR ---
MORNING ASSESSMENT IS COMPLETE. RUQ INCISION IS INTACT WITH PARRISH AND IS CDI. TOM#1 15ML, TOM#2 60ML BOTH ARE DRAINING GREEN BILE. PATIENT RATES RUQ PAIN 4/10 AND DENIES NEED FOR PAIN MEDICATIONS. PATIENT REPORTS BEING DIZZY WHILE LAYING IN BED, VSS, IN ROOM AND INDICATES THAT DIZZINESS IS USUAL FOR PATIENT. ASSISTING PATIENT TO US I/S. IV ZOSYN INFUSING TO RIGHT UPPER ARM IV. SCD'S ARE ON. PATIENT IS ON ROOM AIR AND LUNGS ARE CLEAR. BOWEL TONES ARE HYPOACTIVE IN UPPER QUADRANTS AND ACTIVE IN LOWER QUADRANTS. NO OTHER NEEDS AT THIS TIME.
[2024-06-30] MEDS ORDERED: SENNOSIDES/DOCUSATE 1 EA TAB PO SCH (09:00)
--- NOTE | 2024-06-30 09:57 | NUR ---
IV FLAGYL INFUSING FOR ONE HOUR. PO [address] MOTA IN TO SEE PATIENT. LR @ 50.
--- NOTE | 2024-06-30 10:00 | NUR ---
Spoke with pt and her spouse. They deny needs. Pt may need a walker. Their cousin owns [employer]. Bill states he will check with brother in law as he thinks he has an extra walker. Pt is wanting to go home. Dr. Guevara came in and encouraged pt to not mckee out as she has TOM drains in place and is still needing medication adjustments. Pt states she is just wanting to get to go home soon. We discussed it usuallyis up to the surgeon. She and spouse state understanding. Spouse also stating he does not want her to leave until she is ready.
[2024-06-30] MEDS ORDERED: LEVOTHYROXINE100 MC2 PO (10:03)
[2024-06-30] MEDS ORDERED: LOSARTAN POTASSIUM 50 MG TAB PO SCH (10:15)
--- NOTE | 2024-06-30 10:17 | NUR ---
MEDICAL PLANNER MOVED PATIENT FROM CHAIR TO BED. MEDICAL PLANNER ALSO PROVIDED PATIENTS WITH FRESH LINENS. MEDICAL PLANNER CHARGED VITALS AND I&O'S. CALL LIGHT WITHIN REACH, NO FURTHER NEEDS AT THIS TIME.
--- NOTE | 2024-06-30 11:03 | NUR ---
TOM DRAINS EMPTIED, BILE COLORED LIQUID, #1 35ML TOTAL, #2 88ML TOTAL.
--- NOTE | 2024-06-30 12:16 | NUR ---
PT REQUESTS TO GET UP TO THE COUCH DENIES OFFER TO AMBULATE THE HALLS FIRST. IS PRESENT PT SBA TO COUCH. PT AGREES TO NOTIFY STAFF OF PT NEED AND WHEN SHE IS DONE WITH SITTING ON THE COUCH, CALL LIGHT IS OUT OF REACH
--- NOTE | 2024-06-30 15:18 | NUR ---
PATIENT IS RESTING IN BED, IV ZOSYN INFUSING FOR 4 HOURS.
--- NOTE | 2024-06-30 19:05 | NUR ---
REPORT RECEIVED FROM JAGDISH REBOLLEDO. pt RESTING IN THE BED. IN THE ROOM. pt DENIES ANY NEEDS AT THIS TIME. CALL LIGHT WITHIN REACH. BOARD UPDATED.
--- NOTE | 2024-06-30 19:13 | NUR ---
PATIENT IN BED AT THIS TIME. PROGRAM ASSISTANT ASSISTED PATIENT TO BEDSIDE COMMODE AND THEN BACK TO BED. PROGRAM ASSISTANT CHARTED VITALS AND I&O'S. CALL LIGHT WITHIN REACH,NO FURTHER NEEDS AT THIS TIME.
--- NOTE | 2024-06-30 21:10 | NUR ---
ASSESSMENT AND VITAL SIGNS DONE. MIDLINE AND RUQ INCISION, PARRISH, CDI. NEW PRE WICK PLACED AT 1999. BOWEL TONES ACTIVE. pt DENIES ANY OTHER NEEDS AT THIS TIME. CALL LIGHT WITHIN REACH. IV ASSESSED, WNL. IV ABX INFUSING PER ORDER. SCHEDULED MEDS ADMINISTERED. pt C/O 5/10 PAIN. PRN PAIN MEDICATION ADMINISTERED.
[2024-07-01] VITALS (10 sets, daily range): BP systolic 143–179; BP diastolic 65–82
--- NOTE | 2024-07-01 00:15 | NUR ---
pt RESTING IN THE BED WITH EYES CLOSED. RR EVEN AND UNLABORED. CALL LIGHT WITHIN REACH.
--- NOTE | 2024-07-01 01:47 | NUR ---
pt RESTING IN THE BED WITH EYES CLOSED. RR EVEN AND UNLABORED. CALL LIGHT WITHIN REACH.
--- NOTE | 2024-07-01 02:45 | NUR ---
pt RESTING IN THE BED WITH EYES CLOSED. RR EVEN AND UNLABORED. CALL LIGHT WITHIN REACH.
[2024-07-01 05:50] LABS: HEMATOCRIT 26.2 % (35.0-50.0); HEMOGLOBIN 9.1 g/dL (12.0-18.0); MCH 29.6 (27-36); MCHC 34.7 g/dl (30-36); MCV 85.5 fl (81-99); PLATELET COUNT 454 K/uL (140-440); RBC 3.06 M/ul (4.3-5.7); RDW 14.7 (10.5-15.0)
[2024-07-01 06:02] LABS: LYMPHOCYTES, MANUAL DIFF 23; NEUTROPHILS, MANUAL DIFF 77
[2024-07-01 06:05] LABS: ALBUMIN 1.5 g/dL (3.4-5.0); ALBUMIN/GLOBULIN RATIO 0.42 (1.1-2.4); ANION GAP 8.4 (7-21); BILIRUBIN, TOTAL 0.5 ng/dL (0.2-1.0); CALCIUM 7.9 mg/dL (8.5-10.1); CREATININE, SERUM 0.6 mg/dL (0.55-1.02); MAGNESIUM 1.7 mg/dL (1.8-2.4); PHOSPHORUS, INORGANIC 2.8 mg/dL (2.5-4.9); POTASSIUM 3.4 mmol/L (3.5-5.1); PROTEIN, TOTAL 5.1 g/dL (6.4-8.2)
--- NOTE | 2024-07-01 07:02 | NUR ---
REPORT RECEIVED FROM BUDGET REPORT CLERK RN RYAN. PATIENT IS LYING IN BED WITH EYES CLOSED AND RESPIRATIONS ARE EVEN AND UNLABORED. PATIENT IS SITTING IN THE CHAIR AT BEDSIDE AND LOOKING ON HIS PHONE. CALL LIGHT AND PERSONAL BELONGINGS ARE WITHIN REACH.
[2024-07-01] MEDS ORDERED: POTASSIUM CHLORIDE 10 MEQ TABCR PO SCH (08:00)
--- NOTE | 2024-07-01 08:06 | NUR ---
PATIENT IN BED AT THIS TIME. MANAGER CLINICAL INFORMATICS WENT INTO PATIENTS ROOM TO DO PATIENT ROUNDINGS. PATIENT STATED THAT SHE NEEDED TO USE THE COMMODE. MANAGER CLINICAL INFORMATICS ASSISTED PATIENT TO THE COMMODE AND THEN ASSISTED THE PATIENT BACK TO BED. PATIENT REFUSED TO SIT IN THE CHAIR OR SIT ON THE COUCH. CALL LIGHT WITHIN REACH, NO FURTHER NEEDS AT THIS TIME.
--- NOTE | 2024-07-01 09:30 | NUR ---
Pt sleeping not awakened. Dr. Overton stopped by my office this am. He is considering transfer for this pt as she may need a ERCP at a higher level of care. He stated he would return later today and make a decision.
--- NOTE | 2024-07-01 09:53 | NUR ---
PATIENT IS LYING IN BED AND WATCHING TV. RESPIRATIONS ARE EVEN AND UNLABORED. PATIENT IS SITTING IN THE CHAIR AT BEDSIDE AND ON THE PHONE. CALL LIGHT AND PERSONAL BELONGINGS ARE WITHIN REACH.
--- NOTE | 2024-07-01 10:31 | NUR ---
TYLENOL AND ICE PACK PROVIDED FOR 7/10 RIGHT ABDOMINAL INCISION PAIN. SEE EMAR. CALL LIGHT IN REACH, SPOUSE AT BEDSIDE. NO REQUESTS AT THIS TIME.
--- NOTE | 2024-07-01 10:42 | NUR ---
PATIENT IS LYING IN BED WITH EYES CLOSED AND RESPIRATIONS ARE EVEN AND UNLABORED. PATIENT IS SITTING IN THE CHAIR AT BEDSIDE WITH EYES CLOSED AND RESPIRATIONS ARE EVEN AND UNLABORED. CALL LIGHT AND PERSONAL BELONGINGS ARE WITHIN REACH.
--- NOTE | 2024-07-01 10:45 | NUR ---
PATIENT IN BED AT THIS TIME. RN CHARTED VITALS AND MANAGER INTERNSHIP CHARTED I&O'S. CALL LIGHT WITHIN REACH, NO FURTHER NEEDS AT THIS TIME.
--- NOTE | 2024-07-01 11:40 | NUR ---
PATIENT IS LYING IN BED WITH EYES OPEN AND RESPIRATIONS ARE EVEN AND UNLABORED. PATIENT LEFT AT THIS TIME. PRN ZOFRAN ADMINISTERED FOR NAUSEA PER THE EMAR. FULL ASSESSMENT COMPLETE AND DOCUMENTED IN THE CHART. PATIENT IS ALERT AND ORIENTED TIMES 3. PATIENT STATED THE MONTH IS APRIL. PATIENT IS ON ROOM AIR AND LUNG SOUNDS ARE CLEAR BILATERALLY. CARDIAC WITH IRREGULAR HEART TONES NOTED. STRONG RADIAL AND PEDAL PULSES NOTED BILATERALLY. 1+ PITTING EDEMA NOTED IN BLE. GENERALIZED EDEMA NOTED IN THE RIGHT ARM. PATIENT IS ON A 60 GRAM CARB DIET. BOWEL TONES ARE ACTIVE IN ALL FOUR QUADRANTS. LAST BM WAS 06/25/24. ABDOMEN IS TENDER TO PALPATION AND DISTENTION NOTED. SENSATION INTACT WITH NO COMPLAINTS OF NUMBNESS AND TINGLING. PATIENT RATED PAIN 5/10 IN THE ABDOMEN. PATIENT IS NOT REQUESTING ANYTHING FOR PAIN AT THIS TIME. SKIN WITH SCATTERED BRUISING NOTED. RUQ AND MIDLINE INCISION WITH PARRISH AND MINIMAL AMOUNT OF DRY DRAINAGE NOTED. PATIENT WITH TWO TOM DRAINS IN THE RLQ. BROWN/RED DRAINAGE NOTED IN THE TOM COLLECTION DEVICE. IV SITE IN THE LEFT UPPER ARM FLUSHED WITH 10 ML NORMAL SALINE. LR IS INFUSING AT 50 ML/HR. IV DRESSING IS CLEAN, DRY, AND INTACT. PATIENT STATED NO FURTHER NEEDS AT THIS TIME. CALL LIGHT AND PERSONAL BELONGINGS ARE WITHIN REACH.
--- NOTE | 2024-07-01 12:22 | NUR ---
PATIENT IS LYING IN BED WITH EYES CLOSED AND RESPIRATIONS ARE EVEN AND UNLABORED. CALL LIGHT AND PERSONAL BELONGINGS ARE WITHIN REACH.
--- NOTE | 2024-07-01 12:45 | NUR ---
PT USES CALL LIGHT, STATES SHE NEEDS TO USE RESTROOM. PT UP TO BSC WITH 1PA AND FWW. PT VOIDS, PT BACK TO BED, STATES NO FURTHER NEEDS AT THIS TIME, CALL LIGHT WITHIN REACH.
--- NOTE | 2024-07-01 13:30 | NUR ---
PT LYING IN BED AWAKE, REQUESTS ASSISTANCE WITH TELEVISION GUIDE AND CHANGING CHANNEL, ASSISTANCE PROVIDED. PT STATES NO FURHTER NEEDS AT THIS TIME, CALL LIGHT WITHIN REACH.
--- NOTE | 2024-07-01 14:26 | NUR ---
PATIENT IS LYING IN BED WITH EYES OPEN AND RESPIRATIONS ARE EVEN AND UNLABORED. JORJE RAMOS IS AT THE BEDSIDE BUT STATED NO NEED FOR HELP. CALL LIGHT AND PERSONAL BELONGINGS ARE WITHIN REACH.
--- NOTE | 2024-07-01 15:17 | NUR ---
PATIENT IS LYING IN BED WITH EYES OPEN AND RESPIRATIONS ARE EVEN AND UNLABORED. PATIENT WITH AND A FRIEND AT THE BEDSIDE. PATIENT STATED PAIN WAS A 6/10 IN THE RIGHT SIDE OF ABDOMEN. PATIENT IS NOT REQUESTING ANYTHING FOR PAIN AT THIS TIME. ICE PACK IN PLACE. BOWEL TONES ARE ACTIVE IN ALL FOUR QUADRANTS. ABDOMEN IS TENDER TO PALPATION WITH DISTENTION NOTED. RUQ AND MIDLINE INCISIONS WITH PARRISH AND OPEN TO AIR. SURGERY SITES WITH MINIMAL AMOUNT OF DRY DRAINAGE NOTED. NO REDNESS OR SWELLING OBSERVED. TOM DRAINS WITH SEROSANGUINOUS DRAINAGE NOTED. PATIENT AND FAMILY STATED NO FURTHER NEEDS AT THIS TIME. CALL LIGHT AND PERSONAL BELONGINGS ARE WITHIN REACH.
--- NOTE | 2024-07-01 15:47 | NUR ---
PATIENT IN BED AT THIS TIME. LOCKET MAKER WENT INTO PATIENTS ROOM TO DO HOURLY ROUNDINGS. PATIENTS WANTED THE PATIENT TO GO ON A WALK, LOCKET MAKER WAS WILLING TO WALK WITH PATIENT BUT THEN THE PATIENT STATED THAT SHE WAS IN PAIN. LOCKET MAKER NOTIFIED RN. CALL SUYAPA LARSON, NO FURTHER NEEDS AT THIS TIME.
--- NOTE | 2024-07-01 15:55 | NUR ---
PATIENT WITH URINE INCONTINENCE. KESHA HAYES ASSISTED WITH BRIEF CHANGE. NEW CHUX AND BRIEF PLACED ON THE PATIENT AT THIS TIME. ROUNDED WITH THE PATIENT. PATIENT STATED NO FURTHER NEEDS AT THIS TIME, CALL LIGHT AND PERSONAL BELONGINGS ARE WITHIN REACH.
--- NOTE | 2024-07-01 16:21 | NUR ---
1700 KLOR-CON ADMINISTERED PER THE EMAR. IV PUMP INTAKE FLUIDS CLEARED AT THIS TIME. PATIENT WITH AND A VISITOR SITTING ON THE COUCH AND TALKING. PATIENT STATED NO FURTHER NEEDS AT THIS TIME, CALL LIGHT AND PERSONAL BELONGINGS ARE WITHIN REACH.
--- NOTE | 2024-07-01 17:09 | NUR ---
PATIENT AMBULATED TO THE COMMODE WITH 1PA AND FWW. PATIENT IS AT THE BEDSIDE. PATIENT WITH NEW BRIEF IN PLACE. PATIENT TOLERATED. PATIENT EXPRESSED PAIN AFTER MOVEMENT BUT IS NOT REQUESTING PAIN MEDICATION AT THIS TIME. TOM DRAINS EMPTIED OF 30 ML TOTAL OF BROWN DRAINAGE. PATIENT WITH AN ICE PACK ON THE RIGHT SIDE OF THE ABDOMEN. PATIENT WITH SCDS IN PLACE. FRESH ICE WATER AND AND NEW ENSURE ARE AT THE BEDSIDE. PATIETN STATED NO FURTHER NEEDS AT THIS TIME. CALL LIGHT AND PERSONAL BELONGINGS ARE WITHIN REACH.
--- NOTE | 2024-07-01 18:05 | PATH ---
[facility] [address], [place] [address] Signed SPECIMEN(S): A GALLBLADDER WITH STONES SPECIMEN SOURCE: A. GALLBLADDER WITH STONES CLINICAL HISTORY: Cholecystitis, cholelithiasis FINAL PATHOLOGIC DIAGNOSIS: Gallbladder with stones: - Acute calculous cholecystitis with extensive mucosal necrosis and gallbladder wall hemorrhage. JVR:brianna MICROSCOPIC EXAMINATION: Histologic sections of all submitted blocks are examined by light microscopy. These findings, together with the gross examination, support the pathologic diagnosis. GROSS DESCRIPTION: The specimen, labeled and designated "[place], gallbladder with stones," is received in formalin and consists of Specimen: Collapsed and disrupted gallbladder. Dimensions: Upon reconstruction the specimen appears to have measured 11.4 x 4.5 x 1.8 cm. Serosa: Hemorrhagic, dull, congested. Cystic Duct: No kellen or clamps are present and due to the disrupted nature of the specimen, no semblance of this structure can be identified and/or inked. Calculi: Multiple, multifaceted to foraminal, green-kelly. Mucosa: Hemorrhagic, irregular, covered by a plaque-like covering along multiple points. Cut surfaces are pale and soft. Wall thickness: 0.3-0.6 cm. Lymph node: No pericystic lymph nodes are grossly identified. Additional: None. Circular Sawyer Helper sections are submitted in (A1). AM (under the direct supervision of a pathologist) The Gross Description was prepared using a voice recognition system. The report was reviewed for accuracy; however, sound-alike word errors, addition and/or deletions may occur. If there is any question about this report, please contact Client Services. PATIENT NAME: GAETANO SILVA ALBINO PATHOLOGY DATE OF : 49 REPORT #: [id number] PHYSICIAN: MARGARET PATHOLOGY PCP: ABBEY CUNHA PA-C REPORT IS CONFIDENTIAL AND NOT TO BE RELEASED WITHOUT AUTHORIZATION [facility] [address], [place] [address] Signed PERFORMING LABORATORY: Technical component was performed by [facility], [address] [place] [address] (CLIA# [id number]). Professional interpretation was performed by [facility] - [facility], [address] [place] [id number] (CLIA#: [id number]). Diagnostician: Patrice Huerta MD Pathologist Electronically Signed 07/01/2024 Copies: ~ PATIENT NAME: GAETANO SILVA ALBINO PATHOLOGY DATE OF : 49 REPORT #: [id number] PHYSICIAN: MARGARET SERRANO PCP: ABBEY CUNHA PA-C REPORT IS CONFIDENTIAL AND NOT TO BE RELEASED WITHOUT AUTHORIZATION
--- NOTE | 2024-07-01 18:26 | NUR ---
PATIENT IS SITTING UPRIGHT IN BED WITH HER SITTING IN THE CHAIR AT BEDSIDE. PATIENT STATED NO NEEDS AT THIS TIME. CALL LIGHT AND PERSONAL BELONGINGS ARE WITHIN REACH.
--- NOTE | 2024-07-01 18:26 | NUR ---
PATIENT IN BED AT THIS TIME. BLAST FURNACE TENDER CHARTED VITALS AND I&O'S. CALL LIGHT WITHIN REACH, NO FURTHER NEEDS AT THIS TIME.
--- NOTE | 2024-07-01 19:05 | NUR ---
REPORT RECEIVED FROM TRACE REBOLLEDO. pt RESTING IN THE BED. pt ASK FOR pt TO GO TO THE BR. MANUFACTURING ENGINEERING INTERN IN TO HELP pt TO THE BSC. pt DENIES ANY NEEDS AT THIS TIME. CALL LIGHT WITHIN REACH.
--- NOTE | 2024-07-01 19:30 | NUR ---
PATIENT IN BED AT THIS TIME. BUS PERSON DISHWASHER ASSISTED PATIENT TO BEDSIDE COMMODE AND THEN BACK TO BED. BUS PERSON DISHWASHER PLACED PUREWICK AT 1929. CALL LIGHT WITHIN REACH, NO FURTHER NEEDS AT THIS TIME.
--- NOTE | 2024-07-01 20:35 | NUR ---
ASSESSMENT AND VITAL SIGNS DONE. pt C/O 12/17 PAIN. pt STATE THAT IT IS TOLERABLE. SCHEDULED MEDICATIONS ADMINISTERED. BG CHECKED WITH A RESULTS OF 127. NO SS INSULING NEEDED. pt DENIES ANY NEEDS AT THIS TIME. CALL LIGHT WITHIN REACH.
--- NOTE | 2024-07-01 21:35 | NUR ---
IN ROOM TO HANG pts IV ABX. pt DENIES ANY NEEDS AT THIS TIME. CALL LIGHT WITHIN REACH.
--- NOTE | 2024-07-01 23:35 | NUR ---
pt RESTING IN THE BED WITH EYES CLOSED. RR EVEN AND UNLABORED CALL LIGHT WITHIN REACH.
[2024-07-02] VITALS (10 sets, daily range): BP systolic 149–168; BP diastolic 67–86
--- NOTE | 2024-07-02 01:20 | NUR ---
pt RESTING IN THE BED WITH EYES CLOSED. RR EVEN AND UNLABORED. CALL LIGHT WITHIN REACH. CPAP ON.
--- NOTE | 2024-07-02 02:51 | NUR ---
pt RESTING IN THE BED WITH EYES CLOSED. RR EVEN AND UNLABORED. CALL LIGHT WITHIN REACH.
--- NOTE | 2024-07-02 04:37 | NUR ---
IN TO CHECK ON pt. pt AWAKE AT THIS TIME AND HAS CPAP REMOVED. ASSESSMENT AND VITAL SIGNS DONE. TOM DRAINS X2 EMPTIED. TOM SITES HAD NO LEAKING AND WERE CDI. pt MIDLINE AND RUQ INCISION WERE CDI. PARRISH INTACT. pt C/O 8/10 PAIN. PRN PAIN MEDICATION ADMINISTERED. pt DENIES ANY OTHER NEEDS AT THIS TIME. CALL LIGHT WITHIN REACH. IV ASSESSED, WNL.
--- NOTE | 2024-07-02 06:28 | NUR ---
pt RESTING IN THE BED. VITAL SIGNS DONE. DR IN TO SEE pt. STOPPED FLUIDS FOR TODAY. PURE WICK CHANGED. pt DENIES ANY NEEDS AT THIS TIME. CALL LIGHT WITHIN REACH.
--- NOTE | 2024-07-02 07:00 | NUR ---
REPORT RECEIVED FROM COOK ROOM SUPERVISOR RN RYAN. PATIENT IS LYING IN BED WITH EYES CLOSED AND RESPIRATIONS ARE EVEN AND UNLABORED. PATIENT WITH HER SITTING ON THE COUCH. CALL LIGHT AND PERSONAL BELONGINGS ARE WITHIN REACH.
--- NOTE | 2024-07-02 07:53 | NUR ---
Updated by Dr. Overton, pt will most likely dc tomorrow. Pt will need HH.
--- NOTE | 2024-07-02 08:15 | NUR ---
0800 AND 0900 MEDICATIONS ADMINISTERED PER THE EMAR. PATIENT IS LYING IN BED. PATIENT REPOSITIONED IN BED BY BOOSTING HER UP AND FLOATING PILLOS UNDERNEATH HER ON EACH SIDE OF THE BODY. VITAL SIGNS TAKEN AND DOCUMENTED IN THE CHART. FULL ASSESSMENT COMPLETE AND DOCUMENTED IN CHART. PATIENT IS ALERT AND ORIENTED TIMES THREE. PATIENT IS UNABLE TO TELL ME WHAT MONTH IT IS. SKIN ASSESSMENT COMPLETE WITH ALLY WATTS RN. SKIN WITH SCATTERED BRUISING AND A SCAB ON THE RIGHT DE [place]. REDNESS NOTED ON THE BOTTOM/COCCYX BUT IS BLANCHABLE. PATIENT IS ON ROOM AIR AND LUNG SOUNDS ARE CLEAR BILATERALLY. CARDIAC WITH IRREGULAR HEART TONES ON AUSCULTATION. RADIAL AND PEDAL PULSES ARE STRONG BILATERALLY. CAPILLARY REFILL IS LESS THAN 3 SECONDS IN THE UPPER AND LOWER EXTREMITIES BILATERALLY. BLE WITH DEPENDENT EDEMA AND THE RIGHT ARM WITH GENERALIZED EDEMA NOTED. PATIENT IS ON A 60 GRAM CARB DIET. BOWEL TONES ARE ACTIVE IN ALL FOUR QUADRANTS. ABDOMEN IS TENDER TO PALPATION AND DISTENTION NOTED. SENSATION INTACT WITH NO COMPLAINTS OF NUMBNESS AND TINGLING. TOM DRAIN EMPTIED AT THIS TIME OF BROWN DRAINAGE. SURGICAL SITES WITH PARRISH AND MINIMAL AMOUNT OF DRY DRAINAGE NOTED. PATIENT RATED PAIN 6/10 IN THE RIGHT SIDE OF THE ABDOMEN. PRN TYLENOL ADMINISTERED. PATIENT STATED NO FURTHER NEEDS AT THIS TIME. CALL LIGHT AND PERSONAL BELONGINGS ARE WITHIN REACH.
--- NOTE | 2024-07-02 09:17 | NUR ---
PATIENT IS LYING IN BED WITH EYES CLOSED AND RESPIRATIONS ARE EVEN AND UNLABORED. THE TV IN THE ROOM IS ON. PATIENT STATED NO FURTHER NEEDS AT THIS TIME. CALL LIGHT AND PERSONAL BELONGINGS ARE WITHIN REACH.
--- NOTE | 2024-07-02 09:40 | NUR ---
Upon entering room I find Mrs. Crenshaw setting up in bed and eating breakfast. She reports that the food is good but she does not have "much of an appetite." When I asked about her care while here in the hospital she reports that the care has been "wonderful" stating that "when I call them they are right here to help me." We discussed that she would discharge to home as per the current plan. Mrs. Crenshaw is anxious to go home asking "can I go today." I reported to her that it looks like she might be able to discharge home tomorrow. I also discussed her IMM letter with her which she was agreeable to sign without hesitation. The IMM letter had previously been issued on the , Mrs. Crenshaw signed the letter with the date and time of today. She reports no concerns with her discharge plan.
--- NOTE | 2024-07-02 10:15 | NUR ---
Spoke with Grecia. She states she gets to go home tomorrow. She is very pleased with her care and states she has been at other hospitals. This is the best care she has very received. I gave her I Care Cards. He spouse found a walker for her and she denies any other needs to go home.
--- NOTE | 2024-07-02 10:50 | NUR ---
PT UP TO CHAIR WORKING WITH PHYSICAL THERAPY. PT STATES NO NEEDS AT THIS TIME, CALL LIGHT WITHIN REACH.
--- NOTE | 2024-07-02 11:29 | NUR ---
PATIENT IS SITTING UPRIGHT IN THE CHAIR WITH BILATERAL LOWER EXTREMITIES ELEVATED. PATIENT WITH EYES CLOSED AND RESPIRATIONS ARE EVEN AND UNLABORED. LR IS INFUSING AT 50 ML/HR. PUREWICK DISCONNECTED BY PT TO ENCOURAGE AMBULATION. CALL LIGHT AND PERSONAL BELONGINGS ARE WITHIN REACH.
--- NOTE | 2024-07-02 11:34 | NUR ---
WHILE PT WAS WORKING WITH PATIENT CHANGED BED LINENS. PATIENT IS NOW SITTING UP IN HER CHAIR. SHE COMBED HER HAIR AND BRUSHED HER TEETH AND WASHED HER FACE. WE ALSO PUT A WAFFLE UNDER HER BOTTOM WHILE SITTING UP. PATIENT IS WATCHING TV.
--- NOTE | 2024-07-02 12:20 | NUR ---
BLOOD SUGAR IS 73. PATIENT GIVEN A CLEAR ENSURE. PATIENT ENCOURAGED TO DRINK AND EAT. PATIENT EXPRESSED UNDERSTANDING. PATIENT RATED PAIN 4/10 IN THE RIGHT SIDE OF THE ABDOMEN. PATIENT IS SITTIG UPRIGHT IN THE CHAIR WITH THE BILATERAL LOWER EXTREMITIES ELEVATED. PATIENT STATED NO FURTHER NEEDS AT THIS TIME, CALL LIGHT AND PERSONAL BELONGINGS ARE WITHIN REACH.
--- NOTE | 2024-07-02 13:16 | NUR ---
PATIENT IS SITTING UPRIGHT IN THE CHAIR WITH THE BILATERAL LOWER EXTREMITIES ELEVATED. PATIENT IS WATCHING TV. PATIENT WITH PAIN IN THE RIGHT SIDE OF ABDOMEN. PATIENT RATED THE PAIN 4/10 BUT IS NOT REQUESTING PAIN MEDICATION AT THIS TIME. PATIENT IS ON A 60 GRAM CARB DIET BUT HAS A POOR APPETITE. PATIENT WITH NO COMPLAINTS OF NAUSEA AND VOMITING. BOWEL TONES ARE ACTIVE IN ALL FOUR QUADRANTS. PATIENT LAST BOWEL MOVEMENT WAS 06/25/24. ABDOMEN IS TENDER TO PALPATION AND DISTENTION NOTED. 2 TOM DRAINS ARE LOCATED IN THE RIGHT LOWER QUADRANT AND DRAINING A BROWN FLUID. PATIENT WITH TWO SURGICAL SITES NOTED WITH PARRISH AND OPEN TO AIR. SURGICAL SITES WITH NO REDNESS OR SWELLING AROUND THE SURGICAL SITE. PATIENT REQUESTING TO MOVE BACK TO THE BED. JORJE DAVIS IS ASSISTING PATIENT AT THIS TIME. PATIENT STATED NO FURTHER NEEDS, CALL LIGHT AND PERSONAL BELONGINGS ARE WITHIN REACH.
--- NOTE | 2024-07-02 13:26 | NUR ---
PATIENT IN BED AT THIS TIME. PSYCH ARNP TRANSFERED PATIENT FROM CHAIR TO BED USING A FRONT WHEELED WALKER, PATIENT IS A ONE PERSON ASSIST. CALL LIGHT WITHIN REACH, NO FURTHER NEEDS AT THIS TIME.
--- NOTE | 2024-07-02 14:05 | NUR ---
PATIENT IS LYING IN BED WITH EYES CLOSED AND RESPIRATIONS ARE EVEN AND UNLABORED. TV IS ON IN THE PATIENTS ROOM. CALL LIGHT AND PERSONAL BELONGINGS ARE WITHIN REACH.
--- NOTE | 2024-07-02 14:51 | NUR ---
IV ABX INFUSING NOW ORDERED. PT REQUESTING SOMETHING FOR 6 PAIN, PRN TYLENOL GIVEN - SEE MAR. PT RESTING IN BED, WOULD LIKE TO GET UP AND GO WALK IN A BIT WITH HER . WILL WAIT FOR MEDICINE TO KICK IN FIRST SHE STATES. PT DENIES ANY FURTHER NEEDS AT THIS TIME, CALL LIGHT WITHIN REACH.
--- NOTE | 2024-07-02 15:10 | NUR ---
PATIENT IS LYING IN BED AND WATCHING TV. RESPIRATIONS ARE EVEN AND UNLABORED. PATIENT IS SITTING IN THE ROOM AND LOOKING ON THEIR PHONE. CALL LIGHT AND PERSONAL BELONGINGS ARE WITHIN REACH.
--- NOTE | 2024-07-02 15:48 | NUR ---
Pt report received from KESHA Oliveros. Pt is awake, resting supine in bed, eating grapes. Denies any needs at this time. Incisions are open to air, no drainage, no swelling, no redness noted. Side rails up x4, call light and bedside table in reach. in room.
--- NOTE | 2024-07-02 18:28 | NUR ---
PT ASSISTED WITH REPOSITIONING. PT STATES NO NEEDS AT THIS TIME, CALL LIGHT WITHIN REACH.
--- NOTE | 2024-07-02 19:30 | NUR ---
SHIFT REPORT RECEIVED FROM DAYSHIFT KESHA JAEGER, pt AWAKE AND RESTING IN BED. BED ALARM ON AND CALL LIGHT IN REACH. INCISION UNDER RIGHT BREAST AREA AND LOWER ABD WNL, WELL APPROXIMATED WITH PARRISH IN PLACE. X2 TOM DRAINS ALSO NOTED TO RLQ, SUTURED IN PLACE, SCANT OUTPUT PER SHIFT REPORT. pt DENIES NEEDS OR CONCERNS, CALL LIGHT IN REACH.
--- NOTE | 2024-07-02 20:30 | NUR ---
ROUNDED ON pt, pt RESTING QUIETLY IN BED. ON RA, RR EVEN AND UNLABORED. NO DISTRESS NOTED. CALL LIGHT AND PERSONAL BELONGINGS IN REACH.
--- NOTE | 2024-07-02 20:56 | NUR ---
DIGESTER HAND OBTAINED VITALS. NO NEW I&O AT THIS TIME. PT REPOSITIONED. PT STATES NO FURTHER NEEDS AT THIS TIME. CALL LIGHT WITHIN REACH AND BED ALARM ON.
--- NOTE | 2024-07-02 22:15 | NUR ---
ASSESSMENT COMPLETE, SCHEDULED MEDS GIVEN-SEE EMAR. IV SITE TO LEFT AC WNL, IV FLUIDS/IV ABX INFUSING WNL. EDEMA NOTED TO RIGHT ARM, PREVIOSU IV SITE INFILTRATED PER SHIFT REPORT-ELEVATE PRN. EDEMA ALSO NOTED TO BLE-ELEVATED IN BED TOLERATED. pt IN GOOD SPIRITS AND VERBALIZED EAGERNESS TO RETURN HOME "MAYBE TOMORROW". pt INCONTINENT OF URINE, LEODAN CARE DONE AND CLEAN ATTENDS WITH NEW PUREWICK IN PLACE, NO CHANGES TO ABD INCISIONS X2-TOM DRAINS ALSO REMAIN UNCHANGED FROM START OF SHIFT-YELLOW IN COLOR, SCANT IN OUTPUT VOLUME. pt DENIES ADDITIONAL NEEDS OR CONCERNS, CALL LIGHT IN REACH.
--- NOTE | 2024-07-02 22:45 | NUR ---
CALL LIGHT ANSWERED. PT WANTED TO BE REPOSITIONED. BENDER HELPER AND PRIMARY RN ENTERED ROOM AND PT STATED THAT SHE HAD WET THE BED. BENDER HELPER AND RN CHANGED PT BED LINENS, CHUCKS PAD, AND BREIF. PT BOOSTED AND REPOSTIONED IN BED. PT STATES NO FURTHER NEEDS FROM BENDER HELPER. CALL LIGHT WITHIN REACH AND RN IN ROOM.
--- NOTE | 2024-07-02 23:00 | NUR ---
ROUNDED ON pt, pt RESTING IN BED. ON RA, RR EVEN AND UNLABORED, NO DISTRESS NOTED. CALL LIGHT IN REACH ALONG WITH OTHER PERSONAL BELONGINGS. SCD'S IN PLACE.
--- NOTE | 2024-07-03 00:50 | NUR ---
ROUNDED ON pt, pt RESTING QUIETLY IN BED. ON RA, RR EVEN AND UNLABORED WITH NO DISTRESS NOTED. IV SITE WNL, IV ABX CONTINUES TO INFUSE DIRECTED. CALL LIGHT IN REACH. SCD'S REMAIN IN PLACE.
--- NOTE | 2024-07-03 03:00 | NUR ---
in room to round on pt, pt awoke upon assessing iv site. iv site remains wnl-saline locked. prn pain meication given along with prn nausea medication-see emar. increased dependent edema noted to right side of abdomen, mainly lateral and posterior-transmitter engineer in charge joey in room and also visualized abdomen. pt repositioned in bed an pillow placed under right side of pt. bowel tones active in all quadrants. skin dry and warm to the touch, incision sites x2 remain wnl and well approximated. scant output to marco antonio drains x2-unchanged from start of shift.
--- NOTE | 2024-07-03 05:27 | NUR ---
pt RESTING IN BED WITH CPAP MACHINE IN PLACE, CPOX AT BEDSIDE-SPO2 99% AND HR 61. NO DISTRESS NOTED AND RR EVEN AND UNLABORED. CALL LIGHT IN REACH.
[2024-07-03 05:35] VITALS: BP 161/64
[2024-07-03 05:40] VITALS: BP 161/64
--- NOTE | 2024-07-03 05:40 | NUR ---
AIRBORNE SENSOR SPECIALIST OBTAINED VITALS AND I&O. PT PUREWICK CHANGED. PT STATES NO FURTHER NEEDS AT THIS TIME. CALL LIGHT WITHIN REACH AND BED ALARM ON.
--- NOTE | 2024-07-03 06:28 | NUR ---
SCHEDULED THYROID AND IV ABX HUNG AND INFUSING PER ORDERS, IV SITE WNL. PUMP PROGRAMMED TO FLUSH 25MLS/HR FOR 1 HR FOLLOWING IV ABX. TOM DRAINS X2 EMPTIED-EACH WITH 25MLS YELLOW IN COLOR. IN ROOM AND REMAINS AT BEDSIDE. ICE PACK TO ABD WRAPPED IN PILLOW CASE PER REQUEST.
--- NOTE | 2024-07-03 07:10 | NUR ---
Pt report received from KESHA Dominguez. Pt is resting supine in bed, A&O, in room. Pt requests pt be boosted in bed at this time. Noted some dependent edema to pt's right side. Discussed nursing care plan with pt at this time, to have her ambulate this shift and to have a shower. Pt agreeable with plan. Call light in reach, side rails up
--- NOTE | 2024-07-03 07:18 | NUR ---
THIS RN CALLED DR SARMIENTO REGARDING INCREASED DEPENDENT EDEMA NOTED TO RIGHT SIDE OF ABD-NO NEW ORDERS RECEIVED. DR SARMIENTO ALREADY ON HIS WAY TO [facility] FLOOR AND STATES, "I'LL BE THERE IN 3 MINUTES AND LOOK". MD ALSO MADE AWARE THAT EACH TOM DRAIN PUT OUT 25MLS FROM THE SHIFT.
[2024-07-03 08:12] VITALS: BP 159/72
[2024-07-03 08:30] VITALS: BP 159/72
--- NOTE | 2024-07-03 09:17 | NUR ---
ASSIST PT WITH FWW BACK TO BED FROM CHAIR, NO APPETITE, EXPLAINED TO PATIENT THAT HER BLOOD SUGAR WAS 69, GIVEN MORE APPLE JUICE AND SOME PINKY CRACKERS. PT ADVISED SHE REALLY NEEDS TO TRY TO EAT THAT. SETUP ON BEDSIDE TABLE. ALL PT CARE NEEDS MET, CALL LIGHT WITHIN REACH. PLACED PILLOW UNDER THE (L) HIP PT C/O HER BUTTOCKS HURTS SITTING IN THE BED/CHAIR.
--- NOTE | 2024-07-03 09:27 | NUR ---
Face sheet, H&P, F2F, progress notes, Pt notes faxed to [facility] at pts requests.
[2024-07-03] MEDS ORDERED: CYTOMEL5 MCG PO (09:41)
[2024-07-03] MEDS ORDERED: OXYCODONE HCL5 MG PO (09:43)
[2024-07-03] MEDS ORDERED: AMOX TR-K CLV1 EAC1 PO (09:44)
[2024-07-03] MEDS ORDERED: METRONIDAZOLE250 MG PO (09:44)
--- NOTE | 2024-07-03 10:24 | DS ---
[facility] [address], [place] [address] Signed ADMISSION DATE: 06/22/2024 DISCHARGE DATE: 07/03/2024 FINAL DIAGNOSES: Necrotic cholecystitis with cholelithiasis. PROCEDURE: Laparoscopic converted to open cholecystectomy. HISTORY OF PRESENT ILLNESS: Grecia is a 78-year-old obese diabetic female with low functional status. She apparently has been sick for quite some time. She finally made her way to the emergency room with abdominal pain. Evaluation revealed her cholecystitis with cholelithiasis. She was admitted to our [place] surgeon, Dr. Chapin Cortez. The Medical Service was consulted as well. She was on Eliquis and could not go to surgery on her initial admission. Therefore, I had been asked to take over upon my return as a local general surgeon. HOSPITAL COURSE: Grecia was admitted as above and she was started on her Zosyn and Flagyl. We were able to take her to surgery on 06/26/2024 and converted from a laparoscopic to an open cholecystectomy. It was a prolonged and difficult case. We left the back wall of the gallbladder as well as a little bit of the gallbladder it comes down toward the posterior aspect and onto the cystic duct. We oversewed the cystic artery and the cystic duct with a PDS suture. We left two drains in place. We found that the infundibulum was completely necrotic and as soon as we moved the colon as well as the transverse mesocolon duodenum away, all the stones came out and we had to flush all that out, cleaned that out very carefully. She has slowly but surely made progress each day. She has was initially quite nauseated. The nausea started to simon. She is able to eat more. She told me she never eats much at baseline. She has been able to drink. She has been passing gas and having bowel movements. She is using a little bit of OxyContin intermittently, otherwise Tylenol. All the incisions are healing well and the kellen remain in place. Her drain outputs been below 200 mL a day and it is initially dark green bile. It is starting to lighten a bit. She normally uses a cane at home to ambulate and here in the hospital she has been using her wheeled walker with the help of physical therapy. She has been getting around the hallways quite well and has been able to shower. After long discussion with Grecia and her they felt safe going back in their home. We will provide her with home health care. DISCHARGE PLANS AND MEDICATIONS: Grecia will be discharged back to her home with her . Their daughter is just Electronically Signed By: HAYDER SARMIENTO MD 07/03/24 1024 PATIENT NAME: GRECIA SILVA FEBRUARY DISCHARGE SUMMARY DATE OF : 49 REPORT #: [id number] PHYSICIAN: HAYDER SARMIENTO MD PCP: ABBEY CUNHA PA-C REPORT IS CONFIDENTIAL AND NOT TO BE RELEASED WITHOUT AUTHORIZATION [address] [address] [address] a few miles. We are also going to have home health care go out and help her as well. We are going to provide her with just a small prescription for oxycodone immediate release. We will give her 5 mg tablets one tablet p.o. every 8 hours p.r.n. for severe postoperative pain. We will dispense 10 tablets with no refills. Today is the seventh day of her antibiotics following the surgery. We are going to go ahead and give Augmentin 875 mg one p.o. b.i.d. for four days. We will dispense 8 tablets with no refills. She will have Flagyl 250 mg one p.o. t.i.d. for four days. We will dispense 12 tablets with no refills. She can continue to use Tylenol p.r.n. for kids-tp-[id number] pain. Of course, they have that at home already. And as she has done here in the hospital she will continue her usual medications at home. She is welcome to perform her activities of daily living including walking up and down stairs and showering bathing as usual. She is not to do any heavy pushing, pulling, or lifting over 20 pounds. We will leave all the kellen in place. We will leave the two drains in place. The nurses are going to teach Grecia and her how to empty the drains and record the drain output each day. They will bring that to the office so I can review that in about 7 to 10 days. I have reviewed this with Grecia and her now several days in a row. They have expressed understanding, agreed above plan. Hayder Sarmiento MD [facility] [place] /[id number] cc: AJ Garces MD Copies: ABBEY CUNHA PA-C, ANDREW L MD ~ Electronically Signed By: HAYDER SARMIENTO MD 07/03/24 1024 PATIENT NAME: GRECIA SILVA FEBRUARY DISCHARGE SUMMARY DATE OF : 49 REPORT #: [id number] PHYSICIAN: HAYDER SARMIENTO MD PCP: ABBEY CUNHA PA-C REPORT IS CONFIDENTIAL AND NOT TO BE RELEASED WITHOUT AUTHORIZATION
--- NOTE | 2024-07-03 10:37 | NUR ---
PT NOT AVAILABLE FOR VISIT. PROVIDED PRAYER.
--- NOTE | 2024-07-03 10:50 | NUR ---
Pt's A.M. cbg was 69, and upon recheck it was still 69, breakfast tray with pt. Pt took morning medications with apple juice but refused to eat much of her breakfast. Dr. Overton in with pt during A.M. med administration discussing discharge with pt and pt's . Pt was encouraged to eat to bring her blood sugars up. She verbalized understanding. Pt would like to shower before discharge. Recheck of CBG after breakfast was 86.
--- NOTE | 2024-07-03 11:00 | NUR ---
PATIENT WANTED TO TAKE A SHOWER BEFORE SHE WENT HOME TODAY. WE WALKED INTO THE BATHROOM PATIENT WAS USING HER WALKER. PATIENT SET DOWN WASHED HER BODY AND SHAMPOOED HER HAIR. ALSO GOT HER DRESSED.
[2024-07-03 11:47] VITALS: BP 131/79
[2024-07-03 11:48] VITALS: BP 131/79
--- NOTE | 2024-07-03 12:13 | NUR ---
PT LEFT PURSE IN ROOM UPON DISCHARGE, CALL TO REY(SPOUSE) TO LET HIM KNOW. PLACED PURSE AT THE DRILLING ENGINEERING MANAGER SO THEY COULD JUST RUN IN AND PICK IT UP. VM WAS LEFT AND WILL AWAIT A RETURN CALL.
== END 2024-07-03 11:50 | disposition home or self-care (01) | DRG 414 ==
LOC: ED 09:24 → CCU 11:58 → MS 11:58 → CCU 06-26 13:21 → MS 06-27 17:33
PROVIDERS: Colon & Rectal Surgery; Emergency Medicine; Student in an Organized Health Care Education/Training Program; ADMIT Transplant Surgery; ATTEND Transplant Surgery
PROC: 5A09357 Assistance with Respiratory Ventilation, Less than 24 Consecutive Hours, Continuous Positive Airway Pressure (ICD-10-PCS; 2024-06-22)
PROC: 3E03329 Introduction of Other Anti-infective into Peripheral Vein, Percutaneous Approach (ICD-10-PCS; 2024-06-22)
PROC: 0FT40ZZ Resection of Gallbladder, Open Approach (ICD-10-PCS; principal; 2024-06-26 09:45)
PROC: 0FJ44ZZ Inspection of Gallbladder, Percutaneous Endoscopic Approach (ICD-10-PCS; 2024-06-26 09:45)
PROC: 30233N1 Transfusion of Nonautologous Red Blood Cells into Peripheral Vein, Percutaneous Approach (ICD-10-PCS; 2024-06-28)
DX: K80.12 Calculus of gallbladder with acute and chronic cholecystitis without obstruction (principal); U07.1 COVID-19; N39.0 Urinary tract infection, site not specified; I48.20 Chronic atrial fibrillation, unspecified; E27.49 Other adrenocortical insufficiency; E66.9 Obesity, unspecified; K82.A1 Gangrene of gallbladder in cholecystitis; E87.6 Hypokalemia; G25.81 Restless legs syndrome; E03.9 Hypothyroidism, unspecified; G47.33 Obstructive sleep apnea (adult) (pediatric); E78.5 Hyperlipidemia, unspecified; M06.9 Rheumatoid arthritis, unspecified; E11.649 Type 2 diabetes mellitus with hypoglycemia without coma; D63.1 Anemia in chronic kidney disease; M35.00 Sjogren syndrome, unspecified; K21.9 Gastro-esophageal reflux disease without esophagitis; E11.22 Type 2 diabetes mellitus with diabetic chronic kidney disease; N18.9 Chronic kidney disease, unspecified; I12.9 Hypertensive chronic kidney disease with stage 1 through stage 4 chronic kidney disease, or unspecified chronic kidney disease; Z90.710 Acquired absence of both cervix and uterus; Z90.722 Acquired absence of ovaries, bilateral; Z90.79 Acquired absence of other genital organ(s); Z98.890 Other specified postprocedural states; Z90.12 Acquired absence of left breast and nipple; Z79.899 Other long term (current) drug therapy; Z79.01 Long term (current) use of anticoagulants; Z79.890 Hormone replacement therapy; E11.319 Type 2 diabetes mellitus with unspecified diabetic retinopathy without macular edema; E83.42 Hypomagnesemia
CPT/HCPCS: 00790; 36415; 36430; 74176; 80048; 80053; 81001; 82533; 83036; 83605; 83690; 83735; 84100; 84132; 85025; 86850; 86900; 86901; 86922; 87088; 88304; 93005; 93010; 94660; 94762; 96365; 96375; 97162; 97530; 99285-25; A9270; J0330; J1100; J1160; J1720; J1815; J1885; J2250; J2405; J2470; J2543; J2704; J2765; J3010; J3475; J3480; J3490; J7121; P9016; U0002

== ENCOUNTER 2024-11-15 00:20 | Emergency (ER) | payer OTHER, MEDICARE ==
[~2024-11-15] VITALS: Ht 162.6 cm; Wt 86.9 kg
[~2024-11-15 00:20] MED LIST changes: +AMOX TR-K CLV1 EAC1 PO; +CYTOMEL5 MCG PO; +IRON325 M1 PO; +LEVOTHYROXINE100 MC2 PO; +LIOTHYRONINE SO5 MCG PO; +MAG GLYCINATE100 MG PO; +METRONIDAZOLE250 MG PO; +MULTIVITAMIN1 EACH PO; +OXYCODONE HCL5 MG PO; +PAXLOVID 300-11 EAC1 PO; +SYNTHROID100 MCG PO; +TRIAMCINOLONE A15 G1 TOP; +TURMERIC500 M2 PO; +UREA85 G1 TOP; +VALERIAN ROOT500 MG PO; +VITAMIN K100 MCG PO
[2024-11-15] MEDS ORDERED: DIPHTH,PERTUSS(ACELL),TET VAC 0.5 ML SYRINGE IM ONE (01:00)
[2024-11-15] MEDS ORDERED: LIDOCAINE/RACEPINEP/TETRACAINE 3 ML SYR TOP ONE (02:00)
[2024-11-15 04:00] VITALS: BP 132/64
== END 2024-11-15 04:00 | disposition home or self-care (01) ==
LOC: ED 00:20
DX: S51.812A Laceration without foreign body of left forearm, initial encounter (principal); S61.512A Laceration without foreign body of left wrist, initial encounter; S80.01XA Contusion of right knee, initial encounter; I10 Essential (primary) hypertension; E11.319 Type 2 diabetes mellitus with unspecified diabetic retinopathy without macular edema; M19.90 Unspecified osteoarthritis, unspecified site; I48.91 Unspecified atrial fibrillation; W18.30XA Fall on same level, unspecified, initial encounter; Z79.899 Other long term (current) drug therapy; Z88.8 Allergy status to other drugs, medicaments and biological substances
CPT/HCPCS: 73090; 73110; 73560; 90471; 90715; 99283-25

== ENCOUNTER 2025-05-31 12:43 | Emergency (ER) | payer OTHER, MEDICARE ==
[~2025-05-31] VITALS: Ht 162.6 cm; Wt 93.0 kg
[2025-05-31 14:10] VITALS: BP 134/89
== END 2025-05-31 14:05 | disposition home or self-care (01) ==
LOC: ED 12:43
DX: Z03.821 Encounter for observation for suspected ingested foreign body ruled out (principal); I10 Essential (primary) hypertension; E11.9 Type 2 diabetes mellitus without complications; I48.91 Unspecified atrial fibrillation; F03.90 Unspecified dementia, unspecified severity, without behavioral disturbance, psychotic disturbance, mood disturbance, and anxiety; Z98.890 Other specified postprocedural states; Z79.01 Long term (current) use of anticoagulants; Z79.899 Other long term (current) drug therapy; Z88.8 Allergy status to other drugs, medicaments and biological substances
CPT/HCPCS: 71045; 99283-25

== ENCOUNTER 2025-08-12 08:34 | Emergency (ER) | payer MEDICARE ==
[~2025-08-12] VITALS: Ht 162.6 cm; Wt 96.8 kg
[2025-08-12 10:39] LABS: BASOPHILS 1.2 % (0.1-1.2); EOSINOPHILS 5.1 % (0.7-5.8); LYMPHOCYTES 20.6 % (19.3-51.7); MCH 25.5 PG (25.6-32.2); MCHC 29.8 g/dL (32.2-35.5); MCV 85.4 fL (79.4-94.8); MONOCYTES 7.7 % (4.7-12.5); NEUTROPHILS 65.2 % (34.0-71.1); RBC 2.67 M/uL (3.93-5.22)
[2025-08-12 11:03] LABS: ALT (SGPT) 41.0 U/L (14-59); AST (SGOT) 29.0 U/L (15-37); GLOMERULAR FILTRATION RATE,EST 68.0 mL/min (>60); PROTEIN, TOTAL 6.4 g/dL (6.4-8.2); UREA NITROGEN 14.0 mg/dL (7-18)
[2025-08-12 11:20] LABS: BLOOD/HGB, URINE NEGATIVE (Negative); KETONE, URINE NEGATIVE (Negative); LEUK ESTERASE, URINE NEGATIVE (negative); NITRITE, URINE NEGATIVE (negative)
[2025-08-12 11:26] LABS: ABO O; ANTIBODY SCREEN NEGATIVE; IS CROSSMATCH COMPATIBLE; RH POSITIVE
[2025-08-12 15:05] VITALS: BP 153/77
== END 2025-08-12 15:05 | disposition home or self-care (01) ==
LOC: ED 08:34
PROVIDERS: Emergency Medicine
DX: D50.9 Iron deficiency anemia, unspecified (principal); M19.90 Unspecified osteoarthritis, unspecified site; E11.9 Type 2 diabetes mellitus without complications; I10 Essential (primary) hypertension; I48.91 Unspecified atrial fibrillation; Z90.710 Acquired absence of both cervix and uterus; Z79.899 Other long term (current) drug therapy
CPT/HCPCS: 36415; 36430; 80053; 81003; 85025; 85060; 86850; 86900; 86901; 86922; 99283; P9016